=== PATIENT | male | born 1980 | race African-American/Black ===

== ENCOUNTER 2020-07-14 21:10 | Emergency (ER) | payer OTHER, SELFPAY ==
--- NOTE | ~2020-07-14 | XR_ITS ---
XR chest 1V portable 07/14/2020 23:04 Indication: Left lower and middle left back pain. Diarrhea. Procedure: AP portable chest Comparison: No prior studies for comparison. Findings: Ill-defined bilateral patchy airspace disease with peribronchial thickening, suspicious for pneumonia. Cardiomegaly. No significant effusion or pneumothorax. No acute osseous abnormality. Impression: 1: Bilateral patchy airspace disease, most likely pneumonia. Edema less favored. 2: Cardiomegaly. Reviewed, dictated and finalized at location A. Impression: 1: Bilateral patchy airspace disease, most likely pneumonia. Edema less favored . 2: Cardiomegaly.
[2020-07-14 21:17] VITALS: BP 132/63; PULSE 83; RESP 16; TEMP 36.4; O2SAT 96
[2020-07-14 22:44] LABS: Basophils Percent Auto 0.2 % (0.2-1.2); Hematocrit 44.4 % (42.0-52.0); Hemoglobin 15.1 g/dL (14.0-18.0); Immature Granulocyte Absolute 0.01 K/mm3 (0.00-0.031); Immature Granulocyte Percent A 0.2 % (0-0.5); Lymphocytes Absolute Auto 0.86 K/mm3 (0.9-3.2); Lymphocytes Percent Auto 19.1 % (18.3-44.2); Mean Corpuscular Hemoglobin 30.1 pg (26-34); Mean Corpuscular Volume 88.4 fl (80-100); Mean Platelet Volume 10.7 fl (7.4-10.4); Monocytes Absolute Auto 0.2 K/mm3 (0.1-0.6); Monocytes Percent Auto 5.1 % (2.6-8.5); Neutrophils Absolute Auto 3.4 K/mm3 (1.3-6.7); Neutrophils Percent Auto 75.4 % (45.5-73.1); Platelet Count Result 153 k/mm3 (150-375); Red Blood Count 5.02 M/mm3 (4.6-6.20); Red Cell Distribution Width 13.2 % (11.5-14.5); White Blood Count 4.5 K/mm3 (4.5-10.0)
[2020-07-14 22:48] LABS: Add Urine Microscopic? YES; Appearance Urine Cloudy (Clear); Bacteria Urine Trace /hpf; Bilirubin Urine Negative (Negative); Blood Urine Negative (Negative); Color Urine Yellow (Yellow); Glucose Urine UA Negative (Negative); Ketones Urine Negative (Negative); Leukocyte Esterase Ur Negative LEU/UL (Negative); Mucus Urine Rare /lpf; Nitrate Urine Negative (Negative); Protein Urine 2+ mg/dL (Negative); RBC Urine 0-2 /hpf (0-2); Specific Grav Ur 1.021 (1.001-1.035); Squamous Epithelial Cell Urine Rare /hpf (Few); Urobilinogen Urine Negative mg/dL (<2.0); WBC Urine 0-3 /hpf
[2020-07-14 22:54] LABS: Alanine Aminotransferase 147 U/L (4-50); Albumin Level 4.3 g/dL (3.5-5.1); Alkaline Phosphatase 66 U/L (38-126); Anion Gap 6 mmol/L (8-16); Aspartate Amino Transferase 118 U/L (17-59); Bilirubin,Total 0.7 mg/dL (0.2-1.3); Blood Urea Nitrogen 14 mg/dL (9-20); Calcium 7.8 mg/dL (8.4-10.2); Carbon Dioxide 30 mmol/L (22-30); Chloride 94 mmol/L (98-107); Estimated CRCL calculation 105 ml/min; Estimated Glomerular Filt Rate > 60; Glucose 142 mg/dL (75-110); Lipase 80 U/L (23-300); Potassium 4.3 mmol/L (3.4-5.0); Sodium 130 mmol/L (137-145)
[2020-07-14] MEDS: SODIUM CHLORIDE 0.9% IV 1,000 ML 999 ML IV CONT (23:09)
[2020-07-14] MEDS: FAMOTIDINE 20 MG/2 ML VIAL IV PUSH (23:10)
[2020-07-14] MEDS: KETOROLAC 30 MG/ML VIAL (*BKC) IV PUSH (23:11)
[2020-07-14 23:15] VITALS: BP 138/77; PULSE 72; RESP 20; O2SAT 96
--- NOTE | 2020-07-14 23:16 | ED.GENADULT ---
HPI - General Adult General Chief complaint: Back Pain/Injury <Matthew Martinez PA-C - Last Filed: 07/14/20 23:36> Stated complaint: left flank pain <Matthew Martinez PA-C - Last Filed: 07/14/20 23:36> Time Seen by Provider: 07/14/20 22:24 <Matthew Martinez PA-C - Last Filed: 07/14/20 23:36> Source: patient <Matthew Martinez PA-C - Last Filed: 07/14/20 23:36> Mode of arrival: ambulatory <Matthew Martinez PA-C - Last Filed: 07/14/20 23:36> Limitations: no limitations <Matthew Martinez PA-C - Last Filed: 07/14/20 23:36> History of Present Illness HPI narrative: Patient is a 40-year-old male who presents with 2 days duration of nonproductive cough subjective fever chills body aches diarrhea and left lower back pain patient denies sick contacts has not been seen for this complaint presents in no distress 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 Patient notes he does not have a primary care doctor. <Matthew Martinez PA-C - Last Filed: 07/14/20 23:36> Related Data Allergies/adverse reactions: Allergies Allergy/AdvReac Type Severity Reaction Status Date / Time No Known Allergies Allergy Verified 07/14/20 23:09 <Matthew Martinez PA-C - Last Filed: 07/14/20 23:36> Review of Systems Review of Systems: All systems reviewed & are unremarkable except as noted in HPI and below <Matthew Martinez PA-C - Last Filed: 07/14/20 23:36> [facility] Past Medical History Medical History: Medical History (Updated 07/14/20 @ 23:34 by Matthew Martinez PA-C) Obese <Matthew Martinez PA-C - Last Filed: 07/14/20 23:36> Social History Social History: Social History (Updated 07/14/20 @ 23:28 by Matthew Martinez PA-C) Smoking status: Never smoker <Matthew Martinez PA-C - Last Filed: 07/14/20 23:36> Exam Narrative: Exam Narrative: GENERAL: Well-appearing, obese, and in no acute distress. HEAD: Normocephalic, atraumatic. EYES: PERRLA and EOMI. ENT: Nares clear, no rhinorrhea or epistaxis. Mucous membranes moist. Oropharynx without tonsillar hypertrophy exudate or other lesions. NECK: Supple. No adenopathy or masses. No carotid bruits or JVD CHEST: Clear to auscultation. No respiratory distress. Slight crackles on auscultation HEART: Regular rate and rhythm. No murmur heard. Normal peripheral pulses. ABDOMEN: Soft, nontender, nondistended EXTREMITIES: Normal range of motion. No edema. SKIN: Warm, dry, no rash. NEURO: No focal deficits. Alert and oriented x3. Cranial nerves II through XII grossly intact PSYCH: Normal mood and affect. <Matthew Martinez PA-C - Last Filed: 07/14/20 23:36> Course Course Emergency Course: Patient's constellation of findings and symptoms point to Covid is the likely etiology patient was hydrated evaluated in the emergency department found to have pneumonia also supporting the Covid diagnosis patient was instructed on follow-up and given reasons to return will be purchasing an O2 oximeter to follow his oxygen saturations provided with primary care follow-up is aware that primary care will be necessary to get his results. ABCs and vital signs intact and stable no hypoxemia patient was monitored on oximetry. <KEN Davey Last Filed: 07/14/20 23:36> Vital Signs Vital signs: Vital Signs Temperature 97.6 F 07/14/20 21:17 Pulse Rate 83 07/14/20 21:17 Respiratory Rate 16 07/14/20 21:17 Blood Pressure 132/63 07/14/20 21:17 Pulse Oximetry 96 07/14/20 21:17 Temperature 97.6 F 07/14/20 21:17 Pulse Rate 74 07/15/20 00:10 Respiratory Rate 20 07/15/20 00:10 Blood Pressure 134/85 07/15/20 00:10 Pulse Oximetry 96 07/15/20 00:10 <Matthew Martinez PA-C - Last Filed: 07/14/20 23:36> Vital Signs Temperature 97.6 F 07/14/20 21:17 Pulse Rate 83 07/14/20 21:17 Respiratory Rate 16 07/14/20 21:17 Blood Pressure 132/63 07/14/20 21:17 Pulse Oximetry 96 04/20/21 21:17 T
[2020-07-14] MEDS: DEXAMETHASONE SOD PHOS INJ 4 MG/ML VIAL 10 MG IV PUSH (23:33)
[2020-07-15 00:10] VITALS: BP 134/85; PULSE 74; RESP 20; O2SAT 96
[2020-07-15 18:26] LABS: SARS-CoV-2 RNA PCR Positive
== END 2020-07-15 00:10 | disposition home or self-care (01) ==
PROVIDERS: Emergency Medicine Emergency Medical Services; Emergency Provider General Practice
DX: U07.1 COVID-19 (principal); J12.82 Pneumonia due to coronavirus disease 2019
CPT/HCPCS: 36415; 71045; 80053; 81001; 83690; 85025; 96361; 96374; 96375; 99284; C9803; J1100; J1885; J7030; U0003; U0005

== ENCOUNTER 2020-07-16 00:39 | Inpatient (IN) | payer OTHER, SELFPAY ==
[2020-07-16] VITALS (23 sets, daily range): BP systolic 123–160; BP diastolic 68–98; PULSE 74–97; RESP 18–34; TEMP 36.2–39.4; O2SAT 85–98; BMI 46.3
--- NOTE | ~2020-07-16 | XR_ITS ---
EXAMINATION: XR chest 1V portable DATE: 07/19/2020 05:57 INDICATION: Acute hypoxic respiratory failure. COVID-19 pneumonia. TECHNIQUE: A single frontal view of the chest was obtained. COMPARISON: Chest single view 07/18/2020 FINDINGS: Again seen is mild elevation of right hemidiaphragm. There are airspace opacities involving all lung zones bilaterally. No pleural effusion or pneumothorax. The heart size is normal. The endot messi tube tip is 5.1 cm above the jolly. The nasogastric tube tip is beyond the inferior margin o f the radiograph, but at least to the stomach. A right internal jugular central venous catheter is se en with tip in the superior vena cava. IMPRESSION: 1. Stable diffuse lung disease, consistent with COVID-19 pneumonia. Reviewed, dictated and finalized at location A.
--- NOTE | ~2020-07-16 | CT_ITS ---
EXAMINATION: CTA chest PE protocol DATE: 07/16/2020 02:04 INDICATION: Chest pain. Hypoxia. TECHNIQUE: Computed tomography angiography (CTA) of the chest was performed with 100 mL Omnipaque-350 intravenous contrast timed to evaluate the pulmonary arteries. Coronal maximum intensity projection 3D-reconstructions were created by the technologist. Automated exposure control and iterative reconst ruction technique were employed. Exam dose: 1081.69 mGy-cm total exam DLP. COMPARISON: 07/16/2020 portable AP chest FINDINGS: There is moderate opacification of the pulmonary arteries and no apparent pulmonary embolis m. Extensive bilateral patchy groundglass pulmonary infiltrates. No pleural effusion. No pneumothorax. C ardiomegaly. No thoracic aortic aneurysm or dissection. Hepatic steatosis. Included skeletal structures are unremarkable. IMPRESSION: Extensive bilateral patchy groundglass infiltrates No evidence of pulmonary embolism Hepatic steatosis Reviewed, dictated and finalized at Location A. Reviewed, dictated and finalized at location A.
--- NOTE | ~2020-07-16 | XR_ITS ---
EXAMINATION: XR chest 1V portable DATE: 07/16/2020 01:25 INDICATION: Hypoxia. TECHNIQUE: A single frontal view of the chest was obtained. COMPARISON: Chest CT 07/16/2020, chest single view 07/14/2020 FINDINGS: There are patchy airspace opacities throughout the lungs bilaterally. No pleural effusion o r pneumothorax. Cardiomegaly is noted. IMPRESSION: 1. Worsened diffuse lung disease, consistent with COVID-19 pneumonia. 2. Cardiomegaly. Reviewed, dictated and finalized at location B.
--- NOTE | ~2020-07-16 | XR_ITS ---
XR chest port-a-cath/central 07/17/2020 21:02 Indication: Central line insertion Procedure: AP portable chest Comparison: Comparison to multiple prior studies sequentially, with oldest reviewed study dated 07/14/2020. Findings: Stable endotracheal tube. Right IJ central line tip in the SVC. Progression of diffuse bila teral airspace disease. There is a right pleural effusion. No pneumothorax. Impression: 1: Progression of diffuse bilateral airspace disease which may represent edema and/or pneumonia. 2: Right IJ central line tip in the SVC. Reviewed, dictated and finalized at location A. Impression: 1: Progression of diffuse bilateral airspace disease which may represent edema and/or pneumonia. 2: Right IJ central line tip in the SVC.
--- NOTE | ~2020-07-16 | XR_ITS ---
XR abdomen NG/feed tube insert INDICATION: Evaluate ET tube position. TECHNIQUE: Limited KUB perform for evaluating NG tube . COMPARISON: No prior studies for comparison. FINDINGS: NG tube tip in the proximal duodenum. Visualized bowel gas pattern is unremarkable. IMPRESSION: 1: NG tube tip in the proximal duodenum. Reviewed, dictated and finalized at location A.
--- NOTE | ~2020-07-16 | XR_ITS ---
XR chest ET placement 07/17/2020 20:30 Indication: Respiratory distress. Procedure: AP portable chest Comparison: Comparison to multiple prior studies sequentially, with oldest reviewed study dated 07/14. Findings: No significant change to diffuse bilateral airspace disease which may represent pneumonia o r edema. Endotracheal tube tip 5 cm above the jolly. NG tube passes into the stomach, tip not evalua ran. No pneumothorax. Impression: 1: Stable diffuse bilateral airspace consolidation which may represent edema and/or pneumonia. Reviewed, dictated and finalized at location A. Impression: 1: Stable diffuse bilateral airspace consolidation which may represent edema an d/or pneumonia.
--- NOTE | ~2020-07-16 | XR_ITS ---
EXAMINATION: XR chest 1V portable DATE: 07/20/2020 06:05 INDICATION: Acute hypoxic respiratory failure. COVID-19 pneumonia. TECHNIQUE: A single frontal view of the chest was obtained. COMPARISON: Chest single view 07/19/2020 FINDINGS: There are airspace opacities in all lung zones bilaterally, worst in left midlung zone. No pleural effusion or pneumothorax. The heart size is normal. The endotracheal tube tip is 5.4 cm above the jolly. A right internal jugular central venous catheter is seen with tip in the superior vena c alecia. The nasogastric tube tip is beyond the inferior margin of the radiograph, but at least to the st omach. IMPRESSION: 1. Diffuse lung disease with slight improvement on the right, consistent with COVID-19 pneumonia. Reviewed, dictated and finalized at location A. IMPRESSION: 1. Diffuse lung disease with slight improvement on the right, consistent with C OVID-19 pneumonia.
--- NOTE | ~2020-07-16 | XR_ITS ---
EXAMINATION: XR chest 1V portable DATE: 07/18/2020 08:02 INDICATION: Acute hypoxia respiratory failure. COVID-19 pneumonia. TECHNIQUE: A single frontal view of the chest was obtained. COMPARISON: Chest CT 07/16/2020, chest single view 07/17/2020 FINDINGS: There is mild elevation of right hemidiaphragm. There are airspace opacities in all lung [facility] bilaterally. No pleural effusion or pneumothorax. The heart size is normal. The endotracheal tube tip is 3.8 cm above the jolly. The nasogastric tube tip is beyond the inferior margin of the radiog raph, but at least to the stomach. A right internal jugular central venous catheter is seen with tip in the superior vena cava. IMPRESSION: 1. Stable diffuse lung disease, consistent with COVID-19 pneumonia. Reviewed, dictated and finalized at location A.
--- NOTE | 2020-07-16 00:46 | ECG_ITS ---
Measurements Intervals Bromide Rate: 88 P: 30 UT: 130 QRS: 23 QRSD: 89 T: 27 QT: 323 QTc: 391 Interpretive Statements SINUS RHYTHM NONSPECIFIC T-WAVE ABNORMALITY- DIFFUSE LEADS BASELINE ARTIFACT- I, II, III, AVR, AVF, V4-V6 BORDERLINE ECG Electronically Signed On 07-22-2020 13:44:06 CDT by Kevin Joseph D.O.
--- NOTE | 2020-07-16 01:03 | ED.SOB ---
HPI - SOB/Dyspnea General Chief Complaint: Shortness of Breath/Dyspnea Stated Complaint: sob Time Seen by Provider: 07/16/20 00:43 Source: patient Mode of arrival: EMS Limitations: no limitations History of Present Illness HPI Narrative: This is a 40 year old obese male who presents for shortness of breath. He was diagnosed with pneumonia yesterday that was presumed to be due to COVID. He was discharged with antibiotics, albuterol inhaler. He states his symptoms started on Monday (5 days ago) with cough, left flank pain with coughing and sob. [facility] has [facility] to become more sob. He was found to be 85 % on room air on arrival to ER. He denies chest pain currently. He has been having fever, chills, sob, cough and diarrhea. He took Tylenol 6 hours ago for his fever. He denies history of cardiac disease or DVT, PE. MD elicited complaint: shortness of breath Related Data Home Medications Medication Instructions Recorded Confirmed azithromycin [Zithromax Z-Velasquez] 250 mg PO DAILY 07/16/20 07/16/20 loratadine [Claritin] 10 mg PO DAILY 07/16/20 07/16/20 Allergies Allergy/AdvReac Type Severity Reaction Status Date / Time No Known Allergies Allergy Verified 07/14/20 23:09 Review of Systems Review of Systems: All systems reviewed & are unremarkable except as noted in HPI and below Constitutional: Constitutional: Reports chills and Reports fever(s) Cardiovascular: Cardiovascular: Reports chest pain Respiratory: Respiratory: Reports cough and Reports dyspnea Gastrointestinal: Gastrointestinal: Reports diarrhea Musculoskeletal: Musculoskeletal: Reports back pain [facility] Past Medical History Medical History (Updated 07/16/20 @ 02:42 by Amirah Quintana MD) Obese Social History Social History (Updated 07/14/20 @ 23:28 by Matthew Martinez PA-C) Smoking status: Never smoker Alcohol intake: current Drinks per week: 1 Substance use: never Substance use type: does not use Spiritual care concerns: No Exam Const: General: alert Orientation/consciousness: patient oriented x3 Other: moderate distress Eyes: EOM: EOMs intact bilaterally Resp: Effort & Inspection: no retractions, tachypneic and no use of accessory muscles Auscultation: crackles and diminished lung sounds Other: He is able to speak in complete sentences Cardio: Rate: regular rate Rhythm: regular rhythm Heart sounds: no murmurs GI: GI Palp: Yes Soft to palpation, No Tenderness to palpation present (GI) and No Guarding due to palpation present (GI) Auscultation: normal bowel sounds Skin: General skin exam: normal color Rashes: no rashes Neuro: General: patient oriented x3, moves all extremities and CN's II-XI intact bilaterally Psych: Mental Status: mental status grossly normal Affect: normal affect Course Consultations Consultation #1: I Discussed case with Dr. Johnson. He accepts patient to IMU. Patient is 96% on 4 L NC. He is tachypneic . he does not need intubation at this point. He will be monitored in IMU Date: 07/16/20 Time: 02:06 Vital Signs Vital signs: Vital Signs Temperature 100.5 F H 07/16/20 00:43 Pulse Rate 93 07/16/20 00:43 Respiratory Rate 28 H 07/16/20 00:43 Blood Pressure 160/74 H 07/16/20 00:43 Pulse Oximetry 85 L 07/16/20 00:43 Temperature 98.7 F 07/16/20 08:00 Pulse Rate 97 07/16/20 08:08 Respiratory Rate 22 H 07/16/20 08:08 Blood Pressure 140/71 07/16/20 08:00 Pulse Oximetry 97 07/16/20 08:04 MDM - SOB/Dyspnea Medical Records Attestation: I reviewed the patient's medical records. Lab Data Attestation: I reviewed the patient's lab results. Result diagrams: 07/16/20 00:59 07/16/20 00:59 Labs: Lab Results 07/16/20 07/16/20 07/16/20 Range/Units 00:59 00:59 00:59 WBC 5.4 (4.5-10.0) K/mm3 RBC 4.84 (4.6-6.20) M/mm3 Hgb 14.8 (14.0-18.0) g/dL Hct 42.9 (42.0-52.0)
[2020-07-16 01:08] LABS: Basophils Percent Auto 0.2 % (0.2-1.2); Hematocrit 42.9 % (42.0-52.0); Hemoglobin 14.8 g/dL (14.0-18.0); Immature Granulocyte Absolute 0.03 K/mm3 (0.00-0.031); Immature Granulocyte Percent A 0.6 % (0-0.5); Lymphocytes Absolute Auto 0.48 K/mm3 (0.9-3.2); Lymphocytes Percent Auto 8.8 % (18.3-44.2); Mean Corpuscular HGB Conc 34.5 g/dl (32-36); Mean Corpuscular Hemoglobin 30.6 pg (26-34); Mean Corpuscular Volume 88.6 fl (80-100); Mean Platelet Volume 11.6 fl (7.4-10.4); Monocytes Absolute Auto 0.2 K/mm3 (0.1-0.6); Monocytes Percent Auto 3.3 % (2.6-8.5); Neutrophils Absolute Auto 4.7 K/mm3 (1.3-6.7); Neutrophils Percent Auto 87.1 % (45.5-73.1); Platelet Count Result 171 k/mm3 (150-375); Red Blood Count 4.84 M/mm3 (4.6-6.20); Red Cell Distribution Width 13.1 % (11.5-14.5); White Blood Count 5.4 K/mm3 (4.5-10.0)
[2020-07-16 01:16] LABS: Alveolar/Arterial O2 Gradient 147.3 mmHg; Carboxyhemoglobin 0.9 % THb (0-2.0); Device NASAL CANNULA; Fractional Inspired Oxygen 36 %; HCO3 ABG 24.7 mEq/l (22.0-26.0); Methemoglobin ABG 0.2 %THb (0-1.5); Modified Allen's Test Pass; Oxygen Content ABG 19.4 %vol (16.0-22.0); Oxygen Saturation ABG 94.1 % (95.0-100.0); Oxyhemoglobin 92.6 % THb (90.0-100.0); PCO2 ABG 36.7 mmHg (35.0-45.0); PO2 ABG 66.8 mmHg (80.0-100.0); PO2 FiO2 Ratio Arterial Blood 1.86 %; Reduced Hemoglobin 6.3 %THb (0-5.0); Site Drawn LEFT RADIAL; Total Hemoglobin 14.9 g/dL (12.0-18.0); pH ABG 7.446 (7.350-7.450)
[2020-07-16] MEDS: ALBUTEROL SULFATE (*SP) AEROSOL 1 PUFF 8 PUFF INHALATION (01:18)
[2020-07-16 01:23] LABS: Alanine Aminotransferase 104 U/L (4-50); Albumin Level 4.2 g/dL (3.5-5.1); Alkaline Phosphatase 63 U/L (38-126); Anion Gap 6 mmol/L (8-16); Aspartate Amino Transferase 88 U/L (17-59); Bilirubin,Total 0.7 mg/dL (0.2-1.3); Blood Urea Nitrogen 16 mg/dL (9-20); CRP 2.8 mg/dL (<1.0); Calcium 7.8 mg/dL (8.4-10.2); Carbon Dioxide 30 mmol/L (22-30); Chloride 93 mmol/L (98-107); Estimated CRCL calculation 117 ml/min; Estimated Glomerular Filt Rate > 60; Glucose 162 mg/dL (75-110); Potassium 4.2 mmol/L (3.4-5.0); Sodium 129 mmol/L (137-145)
[2020-07-16 01:23] LABS: Lactic Acid Reflex 1.4 mmol/L (0.7-2.1)
[2020-07-16 01:28] LABS: INR 0.9; Prothrombin Time 12.7 Seconds (11.1-14.7)
[2020-07-16 01:29] LABS: Partial Thromboplastin Time 29.4 SECONDS (22.3-36.8)
[2020-07-16 01:31] LABS: D Dimer 1.28 ug/mL (<0.48)
[2020-07-16] MEDS: DEXAMETHASONE SOD PHOS INJ 4 MG/ML VIAL 10 MG IV PUSH (01:31)
[2020-07-16] MEDS: ACETAMINOPHEN 500 MG TABLET 1000 MG PO (01:46)
[2020-07-16] MEDS: REMDESIVIR 200 MG/NS 250 ML 200 MG/250 ML BAG 250 MG IVPB (02:15)
[2020-07-16 04:03] LABS: Add Urine Microscopic? YES; Appearance Urine Clear (Clear); Bilirubin Urine Negative (Negative); Blood Urine Negative (Negative); Color Urine Yellow (Yellow); Glucose Urine UA Negative (Negative); Ketones Urine Negative (Negative); Leukocyte Esterase Ur Negative LEU/UL (Negative); Mucus Urine Rare /lpf; Nitrate Urine Negative (Negative); Protein Urine 1+ mg/dL (Negative); RBC Urine 0-2 /hpf (0-2); WBC Urine 0-3 /hpf
--- NOTE | 2020-07-16 04:05 | ADMGEN ---
This patient, Bennie Castillo, was admitted to IMU Room 211-01. Patient/family oriented to hospital policies and general routines including ID bracelet, bed and alarms, visiting hours, pain management, procedures, bathroom and other care routines, personal items, smoking policy, room service/diet, and visiting hours. Information on how to activate the Rapid Response Team has been discussed. Patient/Family are encouraged to report perceived risks to care and to ask questions if they do not understand what they are told or what they should do.
[2020-07-16 04:14] LABS: Specific Grav Ur 1.038 (1.001-1.035)
[2020-07-16] MEDS: ALBUTEROL SULFATE (*SP) AEROSOL 1 PUFF 6 PUFF INHALATION (08:07)
[2020-07-16] MEDS: DEXAMETHASONE 2 MG TABLET 6 MG PO (08:42)
--- NOTE | 2020-07-16 09:59 | PM.IMHP ---
H&P: HPI History of Present Illness Date/Time: 07/16/20 09:59 40-year-old male with obesity and obstructive sleep apnea presents to the emergency room on his 4rd visit this week Previous of visits last Monday for headache, last Monday for dehydration and poor p.o. intake, He was diagnosed 08/13/20 w pneumonia w + COVID. He was discharged with antibiotics, albuterol inhaler from the emergency room. he has returned again 07/15/2020Monday with noted shortness of breath after calling 911 and being noted to be hypoxic 86% on room air. Associated symptoms are cough, left flank pain with coughing and sob. He denies loss of taste or smell. Denies diarrhea. 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 He has no known sick contacts. Chief Complaint: shortness of breath Review of Systems Review of Systems: All systems reviewed & are unremarkable except as noted in HPI and below PMFSH Past Medical History Medical History (Updated 07/16/20 @ 10:01 by Rosaura Landry MD) Obese MARILUZ (obstructive sleep apnea) Family History Family History (Updated 07/16/20 @ 10:02 by Rosaura Landry MD) Other Asthma Social History Social History (Updated 07/14/20 @ 23:28 by Matthew Martinez PA-C) Smoking status: Never smoker Alcohol intake: current Drinks per week: 1 Substance use: never Substance use type: does not use Spiritual care concerns: No Meds Home Medications and Allergies Home Medications Medication Instructions Recorded Confirmed Type albuterol sulfate 2 puff INHALATION QID PRN #1 g 07/14/20 07/16/20 Rx famotidine [Pepcid] 20 mg PO BID #14 tablet 07/14/20 07/16/20 Rx fluticasone furoate [Flonase 2 spray INTRANASAL DAILY #5.9 ml 07/14/20 07/16/20 Rx Sensimist] ibuprofen [IBU] 600 mg PO Q6H PRN #7 tablet 07/14/20 07/16/20 Rx azithromycin [Zithromax Z-Velasquez] 250 mg PO DAILY 07/16/20 07/16/20 History loratadine [Claritin] 10 mg PO DAILY 07/16/20 07/16/20 History Allergies Allergy/AdvReac Type Severity Reaction Status Date / Time No Known Allergies Allergy Verified 07/14/20 23:09 Vital Signs Vital Signs - 24 hr 07/16/20 00:43 07/16/20 00:47 07/16/20 00:48 Temperature 100.5 F H 103.0 F H Pulse Rate 93 89 90 Respiratory Rate 28 H 26 H Blood Pressure 160/74 H Pulse Oximetry 85 L 96 07/16/20 01:24 07/16/20 01:37 07/16/20 02:58 Temperature 99.1 F Pulse Rate 96 97 94 Respiratory Rate 34 H 26 H 30 H Blood Pressure 154/90 H 133/68 Pulse Oximetry 98 97 07/16/20 03:30 07/16/20 04:00 07/16/20 05:15 Temperature 99.7 F H Pulse Rate 88 76 74 Respiratory Rate 18 Blood Pressure 123/70 Pulse Oximetry 95 07/16/20 08:00 07/16/20 08:04 07/16/20 08:08 Temperature 98.7 F Pulse Rate 85 97 97 Respiratory Rate 22 H 22 H Blood Pressure 140/71 Pulse Oximetry 92 97 Exam Const: General: comfortable and no acute distress Other: obese HENMT: General nose exam: Normal nares present Mouth: Yes moist mucous membranes Eyes: General: appearance normal, both eyes and all related structures EOM: EOMs intact bilaterally Neck: Neck: supple and no JVD Resp: Effort & Inspection: normal respiratory effort Auscultation: crackles diffuse and diminished lung sounds Cardio: Rate: regular rate GI: Inspection: non-distended GI Palp: Yes Soft to palpation, No Firmness to palpation present (GI), No Tenderness to palpation present (GI), No Guarding due to palpation present (GI) and No Hernia present Auscultation: normal bowel sounds and bowels sounds normal Skin: General skin exam: normal color Wounds: no wounds Neuro: Cognition (Neuro): normal cognition Speech: normal speech Motor exam (neuro): Normal motor muscle tone present throughout Extrem: General: normal to inspection, normal exam except as noted, no edema and no pedal edema Right upper extremity: normal to inspection and normal capillary refill Left upper extremity: no
[2020-07-16] MEDS: CHOLECALCIFEROL 1,000 UNITS TABLET 1000 UNITS PO (12:30)
[2020-07-16] MEDS: ENOXAPARIN 40 MG/0.4 ML SYRINGE SUB-Q (12:31)
[2020-07-16] MEDS: ASCORBIC ACID 500 MG TABLET 1000 MG PO (16:04)
[2020-07-16] MEDS: ZINC SULFATE 220 MG CAPSULE PO (16:05)
[2020-07-16] MEDS: ACETAMINOPHEN 325 MG TABLET 650 MG PO (19:58)
[2020-07-16] MEDS: REMDESIVIR 100 MG/NS 250 ML 100 MG/250 ML BAG 250 MG IVPB (21:14)
[2020-07-17] VITALS (37 sets, daily range): BP systolic 126–187; BP diastolic 61–139; PULSE 72–108; RESP 18–37; TEMP 36.2–37.7; O2SAT 57–99; BMI 46.1
[2020-07-17] MEDS: MELATONIN 3 MG TABLET PO (02:02)
[2020-07-17 05:22] LABS: INR 0.9; Prothrombin Time 12.3 Seconds (11.1-14.7)
[2020-07-17 06:19] LABS: Alanine Aminotransferase 81 U/L (4-50); Estimated CRCL calculation 153 ml/min; Estimated Glomerular Filt Rate > 60
[2020-07-17] MEDS: ZINC SULFATE 220 MG CAPSULE PO ×2 (09:00→17:22)
[2020-07-17] MEDS: ASCORBIC ACID 500 MG TABLET 1000 MG PO ×2 (09:00→17:22)
[2020-07-17] MEDS: CHOLECALCIFEROL 1,000 UNITS TABLET 1000 UNITS PO (09:00)
[2020-07-17] MEDS: DEXAMETHASONE 2 MG TABLET 6 MG PO (09:00)
[2020-07-17 10:53] LABS: Base Excess ABG 0.5 mEq/l (+/-2.0); Fractional Inspired Oxygen 100 %; HCO3 ABG 26.4 mEq/l (22.0-26.0); Oxygen Content ABG 19.8 %vol (16.0-22.0); Oxygen Saturation ABG 95.2 % (95.0-100.0); Oxyhemoglobin 93.7 % THb (90.0-100.0); PCO2 ABG 47.1 mmHg (35.0-45.0); PO2 ABG 78.9 mmHg (80.0-100.0); PO2 FiO2 Ratio Arterial Blood 0.79 %; pH ABG 7.366 (7.350-7.450)
[2020-07-17 10:54] LABS: Device NON-REBREATHER MASK; Modified Allen's Test Pass; Site Drawn LEFT RADIAL
--- NOTE | 2020-07-17 11:21 | PM.CNPUL ---
Assessment and Plan Assessment and plan (1) COVID-19: Code(s): U07.1 - COVID-19 Status: Acute (2) Bilateral pneumonia: Code(s): J18.9 - Pneumonia, unspecified organism Status: Acute (3) Acute respiratory failure with hypoxemia: Code(s): J96.01 - Acute respiratory failure with hypoxia Status: Acute Assessment and Plan: The patient has deteriorated rapidly and may need to move to the intensive care unit for closer monitoring. He may also need noninvasive ventilation such as BiPAP. Recommend starting at 18 / 10 cm of water pressure with 100% FiO2 and a backup rate of 18. (4) MARILUZ (obstructive sleep apnea): Code(s): G47.33 - Obstructive sleep apnea (adult) (pediatric) Status: Acute Assessment and Plan: The patient does not know his current settings but nonetheless we will start him on BiPAP at night if his respiratory status does not deteriorate and if it does he will need BiPAP at night and during the day for his respiratory failure. (5) Pneumonia due to COVID-19 virus: Code(s): U07.1 - COVID-19; J12.82 - Pneumonia due to coronavirus disease 2019 Status: Acute Assessment and Plan: continue Dexamethsone for 10 days continue Remdesivir for 10 days No convincing evidence that convalescent plasma improves outcomes DVT prophylaxis History of Present Illness History of Present Illness Consult date: 07/17/20 Chief complaint: COVID pneumonia,acute respiratory failure w/ hypox Narrative: This is a very pleasant 40-year-old obese male with a history of MARILUZ who presents with COVID-19 pneumonia and acute hypoxemic respiratory failure. He regionally presented to the emergency department on 07/14/2020 with viral symptoms including cough fever chills flank pain and some diarrhea. He was not hypoxic at the time and O2 saturations were 96% in the emergency department. He was discharged from the emergency department with antibiotics and other supportive medications. He returned approximately a day later with worsening dyspnea and cough. And was found to be hypoxic. I was consulted this morning as there has been a profound increase in oxygen demands from 6 L up to 15 L plus with high-flow oxygen and non-rebreather face mask. The patient is in prone positioning and he is awake and slightly sleepy but able to answer questions appropriately. He says he has a mild productive cough. He does feel more short of breath today than yesterday. He denies smoking tobacco. He has no other medical conditions other than obstructive sleep apnea. Review of Systems Review of Systems: All systems reviewed & are unremarkable except as noted in HPI and below PMFSH Past Medical History Medical History (Updated 07/17/20 @ 11:26 by Enedelia Solis MD) Obese MARILUZ (obstructive sleep apnea) Family History Family History (Updated 07/16/20 @ 10:02 by Rosaura Landry MD) Other Asthma Social History Social History (Updated 07/14/20 @ 23:28 by Matthew Martinez PA-C) Smoking status: Never smoker Alcohol intake: current Drinks per week: 1 Substance use: never Substance use type: does not use Spiritual care concerns: No Meds Home Medications and Allergies Home Medications Medication Instructions Recorded Confirmed Type albuterol sulfate 2 puff INHALATION QID PRN #1 g 07/14/20 07/16/20 Rx famotidine [Pepcid] 20 mg PO BID #14 tablet 07/14/20 07/16/20 Rx fluticasone furoate [Flonase 2 spray INTRANASAL DAILY #5.9 ml 07/14/20 07/16/20 Rx Sensimist] ibuprofen [IBU] 600 mg PO Q6H PRN #7 tablet 07/14/20 07/16/20 Rx azithromycin [Zithromax Z-Velasquez] 250 mg PO DAILY 07/16/20 07/16/20 History loratadine [Claritin] 10 mg PO DAILY 07/16/20 07/16/20 History Allergies Allergy/AdvReac Type Severity Reaction Status Date / Time No Known Allergies Allergy Verified 07/14/20 23:09 Vital Signs Vital Signs - 24 hr 07/16/20 11:56
--- NOTE | 2020-07-17 11:27 | PM.IMPN ---
Progress Note: A&P Assessment and Plan (1) Acute respiratory failure with hypoxemia: Code(s): J96.01 - Acute respiratory failure with hypoxia Status: Acute (2) COVID-19: Code(s): U07.1 - COVID-19 Status: Acute (3) Bilateral pneumonia: Code(s): J18.9 - Pneumonia, unspecified organism Status: Acute (4) MARILUZ (obstructive sleep apnea): Code(s): G47.33 - Obstructive sleep apnea (adult) (pediatric) Status: Inactive Additional Plan COVID PNA with acute hypoxemic respiratory failure Continue supplemental oxygen; currently receiving 2 L 95% oxygen saturation on monitor Remdesivir plasma dexamethasone albuterol inhaler Vit C/D Zn++ encouraged to self prone VTEP LMWH 07/17/20 pt w acute worsening of resp status cont tx for COVID defer change in medical regimen to critical care transfer to ICU advance O2 to high flow w NRB c/s Dr Riojas cont supportive care Time Spent With Patient Time with patient: 25 - 35 minutes Subjective Date/time seen: 07/17/20 11:27 acute worsening of resp status transfer to ICU initiated after plan of care reviewed w Dr Vega Patient seen in ICU in prone position on Highflow 60L 80 % with non-rebreather mask. He is notably in distress w increased work of breathing. case reviewed w CONTINUOUS IMPROVEMENT INTERN and public health microbiologist. Exam Narrative: Exam Narrative: GEN: NAD, AAOx3, cooperative obese HEENT: NCAT, MMM, EOMI Neck: no JVD Lungs: symmetric rise, no use of accessory muscles, increased resp rate Abd: NT, ND, obses Ext: moves all, no cyanosis, no clubbing, no edema Objective Data Vital Signs Vital Signs: Vital Signs - 24 hr 07/16/20 11:56 07/16/20 12:00 07/16/20 14:00 Temperature 98.4 F Pulse Rate 88 84 85 Respiratory Rate 30 H Blood Pressure 148/77 H Pulse Oximetry 94 94 07/16/20 16:00 07/16/20 18:00 07/16/20 19:32 Temperature 97.2 F L 99.2 F Pulse Rate 94 89 94 Respiratory Rate 24 H 20 Blood Pressure 150/82 H 154/98 H Pulse Oximetry 92 90 07/16/20 20:00 07/16/20 20:48 07/16/20 22:00 Temperature Pulse Rate 94 81 80 Respiratory Rate 20 Blood Pressure Pulse Oximetry 90 91 07/16/20 23:39 07/17/20 00:00 07/17/20 01:58 Temperature 97.9 F Pulse Rate 86 86 82 Respiratory Rate 20 20 Blood Pressure 149/91 H Pulse Oximetry 90 90 07/17/20 03:30 07/17/20 03:50 07/17/20 04:00 Temperature 98.4 F Pulse Rate 82 82 83 Respiratory Rate 22 H 22 H Blood Pressure 126/61 Pulse Oximetry 91 91 07/17/20 05:37 07/17/20 08:00 07/17/20 08:41 Temperature 98.9 F Pulse Rate 87 86 Respiratory Rate 36 H Blood Pressure 143/81 H Pulse Oximetry 88 L 85 L 07/17/20 10:00 Temperature Pulse Rate 84 Respiratory Rate Blood Pressure Pulse Oximetry Intake/Output Intake/Output: Intake & Output 07/14/20 07/15/20 07/16/20 07/17/20 23:59 23:59 23:59 23:59 Intake Total 3690 1600 Output Total 2850 Balance 840 1600 Meds/Results Medications: Active Medications Generic Name Dose Route Start Last Admin Trade Name Freq PRN Reason Stop Dose Admin Acetaminophen 650 mg 07/16/20 10:25 07/16/20 19:58 Acetaminophen 325 Mg Tablet PO 650 mg Q6H PRN Administration Headache or pain Albuterol 2.5 mg 07/17/20 11:14 Albuterol Sulfate Neb 2.5 Mg/0.5 Ml Inh INHALATION Q6HRT PRN Shortness Of Breath Ascorbic Acid 1,000 mg 07/16/20 17:00 07/17/20 09:00 Ascorbic Acid 500 Mg Tablet PO 1,000 mg BID [place] Administration Budesonide 2 mg 07/17/20 11:15 Budesonide Respule Neb 0.5 Mg/2 Ml Amp INHALATION Q12HRT [facility] Dexamethasone 6 mg 07/16/20 08:00 07/17/20 09:00 Dexamethasone 2 Mg Tablet PO 07/25/20 08:01 6 mg DAILY@0800 [facility] Administration Enoxaparin Sodium 40 mg 07/16/20 11:00 07/16/20 12:31 Enoxaparin 40 Mg/0.4 Ml Syringe SUB-Q 40 mg 1100 [facility] Administration Remdesivir 100 mg in 250 mls @ 250 mls/hr 07/16/20 22:00 0
--- NOTE | 2020-07-17 11:32 | WPDCNINT ---
Assessment and Plan Assessment and plan (1) Acute respiratory failure with hypoxemia: Code(s): J96.01 - Acute respiratory failure with hypoxia Status: Acute Assessment and Plan: Acute hypoxic respiratory failure likely related to COVID-19 pneumonia -chest x-ray and CTA reviewed -ABGs with mild hypercapnia and hypoxia reflecting that patient may be tiring out -patient has been having increasing oxygen requirements since admission on 07/16/2020. -will transfer him to ICU for close monitoring. -will place patient on Airvo evaluate. As well will leave him on Airvo during the day and BiPAP at night -I did discuss with patient regarding intubation if his condition worsens to which she agrees -continue bronchodilators -continue Pulmicort (2) Pneumonia due to COVID-19 virus: Code(s): U07.1 - COVID-19; J12.82 - Pneumonia due to coronavirus disease 2019 Status: Acute Assessment and Plan: COVID-19 pneumonia, SARS-CoV-2 PCR positive on 07/14/2020. -continue Remdesivir and dexamethasone -continue vitamin-D, vitamin-C, zinc -will obtain and trend inflammatory markers inflammatory markers -continue droplet, contact, airborne isolation/precautions -appreciate pulmonology evaluation and recommendations (3) MARILUZ (obstructive sleep apnea): Code(s): G47.33 - Obstructive sleep apnea (adult) (pediatric) Status: Acute Assessment and Plan: Patient has a history of MARILUZ and is on BiPAP at home, does not know his setting -will place patient on BiPAP at night. Settings per electrode cleaning machine operator (4) DVT prophylaxis: Code(s): Z29.9 - Encounter for prophylactic measures, unspecified Status: Acute Assessment and Plan: Lovenox 40 mg SubQ q12h Additional Plan Discussed with patient updated with his condition and plan of care. I also discussed with his Teresa, and updated with his condition and plan of care. I answered all questions Code status: Full code Critical care time spent: 45 minutes This dictation may have been done utilizing a voice recognition system. Attempts have been made to correct errors. However, there may be uncorrected grammatical, spelling, and recognition errors present. Due to a high probability of clinically significant, life threatening deterioration, the patient required my highest level of preparedness to intervene emergently and I personally spent this critical care time directly and personally managing the patient. This critical care time included obtaining a history; examining the patient; pulse oximetry; ordering and review of studies; arranging urgent treatment with development of a management plan; evaluation of patient's response to treatment; frequent reassessment; and discussions with other providers. It was exclusive of separately billable procedures and treating other patients and teaching time. Please see Assessment and Plan section and the rest of the note for further information on patient assessment and treatment Bricklayer Apprentice Consult Note Consult date: 07/17/20 Time Seen: 11:21 Reason for consult: Acute respiratory failure with hypoxia, COVID-19 pneumonia HPI: Bennie Castillo is a 40 year old male history of obesity obstructive you presented the ED 07/15/2019 complaining of shortness of breath,, body aches, diarrhea he was sent with Zithromax, bronchodilators to return again to the ED on 07/16/2020 with worsening shortness, cough insulin to be hypoxic with O2 sats in the mid 80s on room air. He was initially placed on 6 L oxygen via nasal cannula and overnight requiring 15 L nasal cannula high-flow oxygen along with non-rebreather face mask. Patient was in prone position is with adequate O2 sats. He has been tachypneic with mild productive cough and shortness of breath but denies any chest pain, abdominal pain, nausea vomiting at this time. Denies any tobacco use, illicit drug use and occasionally drinks alcohol. Chest x-ray on admission showed worsening dif
[2020-07-17] MEDS: ENOXAPARIN 40 MG/0.4 ML SYRINGE SUB-Q ×2 (12:01→21:20)
[2020-07-17 12:19] LABS: Basophils Percent Auto 0.2 % (0.2-1.2); Hematocrit 41.4 % (42.0-52.0); Hemoglobin 14.1 g/dL (14.0-18.0); Immature Granulocyte Absolute 0.05 K/mm3 (0.00-0.031); Immature Granulocyte Percent A 0.6 % (0-0.5); Lymphocytes Absolute Auto 0.34 K/mm3 (0.9-3.2); Mean Corpuscular HGB Conc 34.1 g/dl (32-36); Mean Corpuscular Hemoglobin 30.1 pg (26-34); Mean Corpuscular Volume 88.3 fl (80-100); Mean Platelet Volume 10.9 fl (7.4-10.4); Monocytes Absolute Auto 0.3 K/mm3 (0.1-0.6); Neutrophils Absolute Auto 7.9 K/mm3 (1.3-6.7); Neutrophils Percent Auto 92.2 % (45.5-73.1); Platelet Count Result 186 k/mm3 (150-375); Red Blood Count 4.69 M/mm3 (4.6-6.20); Red Cell Distribution Width 13.1 % (11.5-14.5); White Blood Count 8.6 K/mm3 (4.5-10.0)
--- NOTE | 2020-07-17 12:25 | PC.NURSE ---
This patient, Bennie Castillo, was transferred to ICU 1 on 07/17/20 at 1225. Personal belongings sent with patient. Report given to LENNOX Fontenot. Appropriate documentation sent with patient.
[2020-07-17 12:33] LABS: D Dimer 1.13 ug/mL (<0.48)
[2020-07-17 12:35] LABS: Alanine Aminotransferase 85 U/L (4-50); Albumin Level 4.2 g/dL (3.5-5.1); Alkaline Phosphatase 72 U/L (38-126); Anion Gap 5 mmol/L (8-16); Aspartate Amino Transferase 85 U/L (17-59); Bilirubin,Total 0.7 mg/dL (0.2-1.3); Blood Urea Nitrogen 18 mg/dL (9-20); Calcium 7.7 mg/dL (8.4-10.2); Carbon Dioxide 31 mmol/L (22-30); Chloride 91 mmol/L (98-107); Estimated CRCL calculation 173 ml/min; Estimated Glomerular Filt Rate > 60; Glucose 170 mg/dL (75-110); Potassium 4.8 mmol/L (3.4-5.0); Sodium 127 mmol/L (137-145)
[2020-07-17 12:38] LABS: CRP 6.5 mg/dL (<1.0)
[2020-07-17] MEDS: guaiFENesin/DEXTROMETHORPHAN 10 ML UDC PO ×2 (12:46→17:22)
[2020-07-17] MEDS: BENZONATATE 100 MG CAPSULE 200 MG PO ×2 (12:46→17:22)
[2020-07-17] MEDS: ACETAMINOPHEN 325 MG TABLET 650 MG PO (12:46)
--- NOTE | 2020-07-17 12:59 | PC.NURSE ---
This patient, Bennie Castillo, was received from [imu ] on 07/17/20 at 1230. Patient/family oriented to unit policies and routines
[2020-07-17] MEDS: FENTANYL 2,500MCG/NS250ML(*CRX 2,500 MCG/250 ML BAG IV CONT (20:30)
[2020-07-17] MEDS: MIDAZOLAM 100MG/NS 100ML(*CRX) 100 MG/100 ML BAG 6 MG IV CONT (20:30)
[2020-07-17] MEDS: PROPOFOL IV EMULSION 100 ML 8.51 MG IV CONT (20:40)
--- NOTE | 2020-07-17 20:59 | WPDPROCEDUR ---
Procedures Intubation Intubation Date: 07/17/20 Intubation Time: 08:00 A pre-procedural Time-Out was completed immediately before starting the procedure and confirmed: Patient Identification, Site, Procedure, Patient Position and the Availability of Requisite Equipment: Yes Sedative: etomidate Mg given: 20 Paralytic: succinylcholine Mg given: 150 Laryngoscope: fiber optic video scope ET tube size: 8 Tube secured depth (cm): 24 Tube secured location: lips Tube placement confirmation: visualized tube passing through cords, equal breath sounds bilaterally, no breath sounds over epigastrium and confirmation by capnometry Patient tolerated procedure: well Intubation complications: none Additional comments: Date of service was 07/17/2020 at 8 pm.
[2020-07-17] MEDS: CISATRACURIUM BESYLATE 20 MG/10 ML VIAL 21.3 MG IV PUSH (21:00)
[2020-07-17] MEDS: CISATRACURIUM BESYLATE 200 MG in DEXTROSE 5% 80 ML 12.76 ML IV CONT (21:15)
--- NOTE | 2020-07-17 21:16 | WPDPROCEDUR ---
Procedures Central Line Placement Right IJ: Central Line Date: 07/17/20 Central Line Time: 20:45 Performed Emergently - Given emergent patient condition, temporal constraints may have precluded informed consent.: Yes Time Out Performed: Yes Patient Position: supine Patient placed on monitor/pulse ox: Yes Provider Prep: mask, sterile gown, sterile gloves, Max. sterile barrier precautions, cap and hand hygiene with conventional soap/water or alcohol based hand rub Central line prep: 2% Chlorhexidine scrub Sterile US Technique with sterile gel/sterile probe covers: Yes Central line lumen inserted: triple [place]: 7 Length (cm): 18 Depth of Insertion (cm): 17 Post Procedure: sutured in place, good blood return, all ports aspirated, flushed, capped, transparent dressing, securement product and aseptic technique maintained throughout procedure Post procedure x-ray: tip of catheter in good position and no pneumothorax seen Patient tolerated procedure: well and no complications Complications: none Additional comments: Date of service of procedure was 07/17/2020 at 20:45 hrs.
[2020-07-17] MEDS: CENTRAL LINE FLUSH 10 ML IV PUSH (21:21)
[2020-07-17] MEDS: EPOPROSTENOL SODIUM 0.5 MG VIAL 1 MG INHALATION (21:27)
[2020-07-17] MEDS: REMDESIVIR 100 MG/NS 250 ML 100 MG/250 ML BAG 250 MG IVPB (21:39)
[2020-07-17 22:45] LABS: Alveolar/Arterial O2 Gradient 595.6 mmHg; Base Excess ABG 1.4 mEq/l (+/-2.0); Carboxyhemoglobin 0.3 % THb (0-2.0); Fractional Inspired Oxygen 100 %; HCO3 ABG 29.7 mEq/l (22.0-26.0); Methemoglobin ABG 0.4 %THb (0-1.5); Oxygen Content ABG 24.1 %vol (16.0-22.0); Oxygen Saturation ABG 87.7 % (95.0-100.0); Oxyhemoglobin 87.5 % THb (90.0-100.0); PCO2 ABG 58.9 mmHg (35.0-45.0); PO2 ABG 58.5 mmHg (80.0-100.0); PO2 FiO2 Ratio Arterial Blood 0.58 %; Reduced Hemoglobin 11.8 %THb (0-5.0); Total Hemoglobin 19.7 g/dL (12.0-18.0)
[2020-07-17 22:47] LABS: Device VENTILATOR; Modified Allen's Test Pass; Site Drawn LEFT RADIAL
[2020-07-17 22:48] LABS: Arterial Blood Gas PEEP 12 cmH2O; Arterial Blood Gas Tidal Volume 450 ml; Arterial Blood Gas Vent Mode CMV; Arterial Blood Gas Ventilator rate 24 /MIN
[2020-07-18] VITALS (40 sets, daily range): BP systolic 118–146; BP diastolic 65–80; PULSE 69–89; RESP 24–30; TEMP 36.8–38.1; O2SAT 90–96
--- NOTE | 2020-07-18 01:24 | PC.NURSE ---
Addendum entered by Renee Mayes RN 07/18/20 01:26: conversation took place at 07/17/202049 Original Note: Spouse Teresa updated per intubation and central line placement. Teresa concerned about being mad POA. Will enter case mg consult.
--- NOTE | 2020-07-18 01:32 | PC.NURSE ---
07/18/20 0010 Yokasta Chappell RN spoke with Teresa Marroquin in [facility], Teresa is pt's fiance, not spouse, but remains his emergency contact.
[2020-07-18] MEDS: RAPID SEQUENCE INTUBATION KIT 1 EACH (02:03)
[2020-07-18] MEDS: EPOPROSTENOL SODIUM 0.5 MG VIAL 1 MG INHALATION (03:18)
[2020-07-18 03:49] LABS: Alveolar/Arterial O2 Gradient 612.6 mmHg; Base Excess ABG 0.1 mEq/l (+/-2.0); Carboxyhemoglobin 0.4 % THb (0-2.0); Fractional Inspired Oxygen 100 %; HCO3 ABG 24.4 mEq/l (22.0-26.0); Methemoglobin ABG 0.2 %THb (0-1.5); Modified Allen's Test Pass; Oxygen Content ABG 18.3 %vol (16.0-22.0); Oxyhemoglobin 89.8 % THb (90.0-100.0); PCO2 ABG 38.9 mmHg (35.0-45.0); PO2 ABG 61.5 mmHg (80.0-100.0); PO2 FiO2 Ratio Arterial Blood 0.62 %; Reduced Hemoglobin 9.6 %THb (0-5.0); Site Drawn RIGHT RADIAL; Total Hemoglobin 14.5 g/dL (12.0-18.0); pH ABG 7.416 (7.350-7.450)
[2020-07-18 03:50] LABS: Arterial Blood Gas PEEP 12 cmH2O; Arterial Blood Gas Tidal Volume 450 ml; Arterial Blood Gas Vent Mode CMV; Arterial Blood Gas Ventilator rate 24 /MIN; Device VENTILATOR
[2020-07-18 05:18] LABS: Hematocrit 40.1 % (42.0-52.0); Hemoglobin 13.9 g/dL (14.0-18.0); Mean Corpuscular HGB Conc 34.7 g/dl (32-36); Mean Corpuscular Hemoglobin 30.4 pg (26-34); Mean Corpuscular Volume 87.7 fl (80-100); Mean Platelet Volume 11.2 fl (7.4-10.4); Platelet Count Result 203 k/mm3 (150-375); Red Blood Count 4.57 M/mm3 (4.6-6.20); Red Cell Distribution Width 13.1 % (11.5-14.5); White Blood Count 8.1 K/mm3 (4.5-10.0)
[2020-07-18 05:32] LABS: INR 0.9; Prothrombin Time 13.2 Seconds (11.1-14.7)
[2020-07-18 05:34] LABS: D Dimer 1.73 ug/mL (<0.48)
[2020-07-18 05:49] LABS: Alanine Aminotransferase 65 U/L (4-50); Albumin Level 3.5 g/dL (3.5-5.1); Alkaline Phosphatase 75 U/L (38-126); Anion Gap 4 mmol/L (8-16); Aspartate Amino Transferase 88 U/L (17-59); Bilirubin,Total 0.6 mg/dL (0.2-1.3); Blood Urea Nitrogen 17 mg/dL (9-20); Calcium 7.5 mg/dL (8.4-10.2); Carbon Dioxide 34 mmol/L (22-30); Chloride 93 mmol/L (98-107); Estimated CRCL calculation 173 ml/min; Estimated Glomerular Filt Rate > 60; Glucose 140 mg/dL (75-110); Magnesium 2.6 mg/dL (1.6-2.3); Phosphorus 3.2 mg/dL (2.5-4.5); Potassium 4.4 mmol/L (3.4-5.0); Sodium 131 mmol/L (137-145)
[2020-07-18 05:50] LABS: Lactate Dehydrogenase 2943 U/L (313-618)
[2020-07-18] MEDS: CISATRACURIUM BESYLATE 200 MG in DEXTROSE 5% 80 ML 10.64 ML IV CONT (06:17)
[2020-07-18] MEDS: PROPOFOL IV EMULSION 100 ML 12.76 MG IV CONT ×2 (06:19→12:40)
[2020-07-18] MEDS: CENTRAL LINE FLUSH 10 ML IV PUSH ×4 (06:45→21:41)
[2020-07-18] MEDS: ENOXAPARIN 40 MG/0.4 ML SYRINGE SUB-Q ×2 (08:26→21:40)
[2020-07-18] MEDS: ASCORBIC ACID 500 MG TABLET 1000 MG PO ×2 (08:27→16:35)
[2020-07-18] MEDS: DEXAMETHASONE SOD PHOS INJ 4 MG/ML VIAL 6 MG IV PUSH (08:27)
[2020-07-18] MEDS: CHOLECALCIFEROL 1,000 UNITS TABLET 1000 UNITS PO (08:27)
[2020-07-18] MEDS: ZINC SULFATE 220 MG CAPSULE PO ×2 (08:27→16:35)
[2020-07-18 09:20] LABS: Carboxyhemoglobin 0.3 % THb (0-2.0); Fractional Inspired Oxygen 100 %; HCO3 ABG 25.5 mEq/l (22.0-26.0); Methemoglobin ABG 0.3 %THb (0-1.5); Oxygen Content ABG 20.4 %vol (16.0-22.0); Oxygen Saturation ABG 94.1 % (95.0-100.0); Oxyhemoglobin 92.4 % THb (90.0-100.0); PCO2 ABG 40.2 mmHg (35.0-45.0); PO2 ABG 68.8 mmHg (80.0-100.0); PO2 FiO2 Ratio Arterial Blood 0.69 %; Total Hemoglobin 15.7 g/dL (12.0-18.0)
[2020-07-18 09:24] LABS: Device VENTILATOR; Modified Allen's Test Pass; Site Drawn RIGHT RADIAL
[2020-07-18 09:25] LABS: Arterial Blood Gas PEEP 12 cmH2O; Arterial Blood Gas Tidal Volume 450 ml; Arterial Blood Gas Vent Mode CMV; Arterial Blood Gas Ventilator rate 24 /MIN
[2020-07-18] MEDS: EPOPROSTENOL SODIUM 0.5 MG VIAL INHALATION (10:42)
--- NOTE | 2020-07-18 10:59 | WPDINTPN ---
Progress Note: A&P Assessment and Plan (1) Pneumonia due to COVID-19 virus: Code(s): U07.1 - COVID-19; J12.82 - Pneumonia due to coronavirus disease 2019 Status: Acute Assessment and Plan: Continue dexamethasone 6 mg daily for a total of 10 days continue remdesivir 100 mg daily for a total of 10 days No evidence that convalescent plasma is effective. (2) MARILUZ (obstructive sleep apnea): Code(s): G47.33 - Obstructive sleep apnea (adult) (pediatric) Status: Acute (3) Acute respiratory failure with hypoxemia: Code(s): J96.01 - Acute respiratory failure with hypoxia Status: Acute (4) ARDS (adult respiratory distress syndrome): Code(s): J80 - Acute respiratory distress syndrome Status: Acute Assessment and Plan: His PaO2/ FiO2 is 61 which carries a mortality of approximately 45% with ARDS and likely more in the setting of COVID-19 pneumonia. His prognosis is very poor decrease tidal volume to 420 ( ideal body weight is 155 lbs) increased respiratory rate to 26 Will wean off Flolan so that nebulized Pulmicort and albuterol can be given Along with 6 mL/kg of tidal volume his plateau pressures should be below 30 cm of water pressure but unfortunately his current ventilator machine does not have the capability of measuring that period Code status: Full code Critical care time spent: 32 minutes This dictation may have been done utilizing a voice recognition system. Attempts have been made to correct errors. However, there may be uncorrected grammatical, spelling, and recognition errors present. Due to a high probability of clinically significant, life threatening deterioration, the patient required my highest level of preparedness to intervene emergently and I personally spent this critical care time directly and personally managing the patient. This critical care time included obtaining a history; examining the patient; pulse oximetry; ordering and review of studies; arranging urgent treatment with development of a management plan; evaluation of patient's response to treatment; frequent reassessment; and discussions with other providers. It was exclusive of separately billable procedures and treating other patients and teaching time. Please see Assessment and Plan section and the rest of the note for further information on patient assessment and treatment Subjective Date/time seen: 07/18/20 10:59 Interval history: The patient was intubated last night for worsening hypoxemic respiratory failure. He was immediately sedated and paralyzed and currently is in prone positioning for ARDS secondary to COVID-19 pneumonia. His current vent settings include a tidal volume of 450 /24/ 100%/ peep of 12 with ABGs this morning showing a PaO2 of 61 and pH and pCO2 within normal limits. Chest x-ray this morning shows diffuse bilateral airspace and interstitial lung disease consistent with worsening COVID-19 pneumonia and ARDS. Review of Systems Review of Systems: All systems reviewed & are unremarkable except as noted in HPI and below Exam Narrative: Exam Narrative: intubated, sedated, paralyzed and in prone positioning Const: General: well developed Nutritional Appearance: obese Limitations: no limitations HENMT: Head: normocephalic and atraumatic Eyes: General: appearance normal, both eyes and all related structures Neck: Neck: trachea midline and supple Resp: Auscultation: wheezes and diminished lung sounds Cardio: Jugular venous distension: no JVD Rate: regular rate Rhythm: regular rhythm Heart sounds: S1 normal heart sound present and S2 normal heart sound present Skin: General skin exam: no rashes or lesions noted Neuro: General: oriented to person, oriented to place, oriented to time and patient oriented x3 Cognition (Neuro): normal cognition Speech: normal speech Extrem: General: no clubbing, cyanosis or edema Psych: Appearance: grossly normal and well ke
[2020-07-18] MEDS: MIDAZOLAM 100MG/NS 100ML(*CRX) 100 MG/100 ML BAG 6 MG IV CONT (12:28)
--- NOTE | 2020-07-18 13:34 | PM.IMPN ---
Progress Note: A&P Assessment and Plan (1) ARDS (adult respiratory distress syndrome): Code(s): J80 - Acute respiratory distress syndrome Status: Acute (2) Acute respiratory failure with hypoxemia: Code(s): J96.01 - Acute respiratory failure with hypoxia Status: Acute (3) Pneumonia due to COVID-19 virus: Code(s): U07.1 - COVID-19; J12.82 - Pneumonia due to coronavirus disease 2019 Status: Acute (4) Bilateral pneumonia: Code(s): J18.9 - Pneumonia, unspecified organism Status: Acute (5) MARILUZ (obstructive sleep apnea): Code(s): G47.33 - Obstructive sleep apnea (adult) (pediatric) Status: Acute (6) DVT prophylaxis: Code(s): Z29.9 - Encounter for prophylactic measures, unspecified Status: Acute Additional Plan 07/16/20 COVID PNA with acute hypoxemic respiratory failure Continue supplemental oxygen; currently receiving 2 L 95% oxygen saturation on monitor Remdesivir plasma dexamethasone albuterol inhaler Vit C/D Zn++ encouraged to self prone VTEP LMWH 07/17/20 pt w acute worsening of resp status cont tx for COVID defer change in medical regimen to critical care transfer to ICU advance O2 to high flow w NRB c/s Dr Riojas cont supportive care 07/18/20 Patient developed ARDS overnight and was intubated He continues treatment for Coronavirus Defer ongoing critical care management of life support to cipher expert The case reviewed with RN Subjective Date/time seen: 07/18/20 13:34 Patient seen in ICU intubated with paralytic for comfort. Unfortunately, patient entered into ARDS last night around 8:00 p.m. and required intubation. Exam Narrative: Exam Narrative: GEN: NAD, intubated sedated HEENT: NCAT, ETT present Neck: no JVD Ext: no cyanosis, no clubbing, no edema Neuro: Unable to be evaluated Vital signs reviewed Objective Data Vital Signs Vital Signs: Vital Signs - 24 hr 07/17/20 14:00 07/17/20 16:00 07/17/20 17:26 Temperature 97.8 F Pulse Rate 76 92 98 Respiratory Rate 24 H 34 H Blood Pressure 135/86 140/87 Pulse Oximetry 95 97 07/17/20 18:00 07/17/20 19:40 07/17/20 19:48 Temperature 98.5 F Pulse Rate 85 80 Respiratory Rate 30 H 18 Blood Pressure 127/68 Pulse Oximetry 95 91 93 07/17/20 20:00 07/17/20 20:01 07/17/20 20:06 Temperature Pulse Rate 108 H 104 H Respiratory Rate 32 H Blood Pressure 187/107 H Pulse Oximetry 57 L 87 L 07/17/20 20:30 07/17/20 20:40 07/17/20 21:00 Temperature 99.4 F 99.7 F H Pulse Rate 100 101 H 87 Respiratory Rate 25 H 37 H 26 H Blood Pressure 166/90 H 175/108 H Pulse Oximetry 92 83 L 07/17/20 21:15 07/17/20 21:30 07/17/20 21:35 Temperature 99.7 F H Pulse Rate 77 98 Respiratory Rate 24 H 24 H Blood Pressure 142/62 H 157/139 H Pulse Oximetry 92 96 07/17/20 21:45 07/17/20 21:48 07/17/20 21:54 Temperature Pulse Rate 91 98 90 Respiratory Rate 24 H 24 H Blood Pressure 175/88 H Pulse Oximetry 90 90 07/17/20 22:00 07/17/20 23:00 07/17/20 23:50 Temperature 99.9 F H Pulse Rate 90 82 72 Respiratory Rate 24 H 24 H 24 H Blood Pressure 178/84 H 151/69 H Pulse Oximetry 91 98 07/18/20 00:00 07/18/20 02:00 07/18/20 03:19 Temperature 99.8 F H 100.1 F H Pulse Rate 74 69 75 Respiratory Rate 24 H 24 H 25 H Blood Pressure 146/69 H 146/65 H Pulse Oximetry 95 93 93 07/18/20 03:54 07/18/20 04:00 07/18/20 05:55 Temperature 100.4 F H Pulse Rate 74 75 86 Respiratory Rate 24 H Blood Pressure 125/70 Pulse Oximetry 92 93 93 07/18/20 06:00 07/18/20 06:17 07/18/20 08:00 Temperature 100.1 F H 100.5 F H Pulse Rate 79 77 78 Respiratory Rate 26 H 24 H 24 H Blood Pressure 121/67 122/66 140/73 Pulse Oximetry 95 96 07/18/20 08:03 07/18/20 08:46 07/18/20 09:00 Temperature Pulse Rate 79 78 82 Respiratory Rate 26 H 25 H 26 H Blood Pressure 140/73 Pulse Oximetry 93 93 07/18/20 09:50 07/18/20 10:00 07/18/20
[2020-07-18] MEDS: CISATRACURIUM BESYLATE 200 MG in DEXTROSE 5% 80 ML 17.02 ML IV CONT (14:43)
[2020-07-18 15:37] LABS: Alveolar/Arterial O2 Gradient 606.1 mmHg; Base Excess ABG 1.7 mEq/l (+/-2.0); Device VENTILATOR; Fractional Inspired Oxygen 100 %; HCO3 ABG 27.6 mEq/l (22.0-26.0); Modified Allen's Test Pass; Oxygen Content ABG 18.5 %vol (16.0-22.0); Oxygen Saturation ABG 89.8 % (95.0-100.0); Oxyhemoglobin 88.3 % THb (90.0-100.0); PO2 ABG 58.9 mmHg (80.0-100.0); PO2 FiO2 Ratio Arterial Blood 0.59 %; Site Drawn LEFT RADIAL; Total Hemoglobin 14.9 g/dL (12.0-18.0); pH ABG 7.378 (7.350-7.450)
[2020-07-18 15:38] LABS: Arterial Blood Gas PEEP 12 cmH2O; Arterial Blood Gas Tidal Volume 420 ml; Arterial Blood Gas Vent Mode CMV; Arterial Blood Gas Ventilator rate 26 /MIN
[2020-07-18] MEDS: PROPOFOL IV EMULSION 100 ML 17.02 MG IV CONT (18:05)
[2020-07-18] MEDS: CISATRACURIUM BESYLATE 200 MG in DEXTROSE 5% 80 ML 25.51 ML IV CONT (18:05)
[2020-07-18 18:14] LABS: Glucose Point of Care 194 (65-105)
[2020-07-18 18:14] LABS: Glucose Point of Care 202 (65-105)
[2020-07-18] MEDS: ALBUTEROL SULFATE NEB 2.5 MG/0.5 ML INH INHALATION (20:06)
[2020-07-18] MEDS: BUDESONIDE RESPULE NEB 0.5 MG/2 ML AMP 2 MG INHALATION (20:06)
[2020-07-18] MEDS: CISATRACURIUM BESYLATE 200 MG in DEXTROSE 5% 80 ML 23.38 ML IV CONT (21:40)
[2020-07-18] MEDS: REMDESIVIR 100 MG/NS 250 ML 100 MG/250 ML BAG 250 MG IVPB (21:41)
[2020-07-18] MEDS: FENTANYL 2,500MCG/NS250ML(*CRX 2,500 MCG/250 ML BAG 12.5 MCG IV CONT (21:41)
--- NOTE | 2020-07-18 21:53 | PC.NURSE ---
Spoke with aroldo Moore and brother Les in hospital lobby. Family updated to patient care. Family would like to pursue transfer to [facility] or another Hospital. Explained Dr Mane would be updated and suggested that she also call to speak to him tomorrow. Explained there have been BMI limits for [facility], but we can certainly try. Family tearful and thankful for care. Given number for ICU.
[2020-07-19] VITALS (39 sets, daily range): BP systolic 105–131; BP diastolic 60–73; PULSE 61–90; RESP 26–28; TEMP 36.4–37.9; O2SAT 91–100
[2020-07-19] MEDS: PROPOFOL IV EMULSION 100 ML 21.27 MG IV CONT ×6 (00:10→22:44)
[2020-07-19 00:22] LABS: Glucose Point of Care 149 (65-105)
[2020-07-19] MEDS: ALBUTEROL SULFATE NEB 2.5 MG/0.5 ML INH INHALATION ×4 (01:57→20:15)
[2020-07-19] MEDS: CISATRACURIUM BESYLATE 200 MG in DEXTROSE 5% 80 ML 25.51 ML IV CONT (02:44)
[2020-07-19 04:18] LABS: Fractional Inspired Oxygen 100 %; HCO3 ABG 30.2 mEq/l (22.0-26.0); Oxygen Content ABG 21.7 %vol (16.0-22.0); Oxygen Saturation ABG 96.7 % (95.0-100.0); Oxyhemoglobin 95.6 % THb (90.0-100.0); PCO2 ABG 50.7 mmHg (35.0-45.0); PO2 ABG 89.3 mmHg (80.0-100.0); PO2 FiO2 Ratio Arterial Blood 0.89 %; Total Hemoglobin 16.1 g/dL (12.0-18.0); pH ABG 7.393 (7.350-7.450)
[2020-07-19 04:19] LABS: Device VENTILATOR; Modified Allen's Test Pass; Site Drawn RIGHT RADIAL
[2020-07-19 04:20] LABS: Arterial Blood Gas PEEP 12 cmH2O; Arterial Blood Gas Tidal Volume 420 ml; Arterial Blood Gas Vent Mode CMV; Arterial Blood Gas Ventilator rate 26 /MIN
[2020-07-19 05:09] LABS: Hematocrit 38.3 % (42.0-52.0); Hemoglobin 13.3 g/dL (14.0-18.0); Mean Corpuscular HGB Conc 34.7 g/dl (32-36); Mean Corpuscular Hemoglobin 30.4 pg (26-34); Mean Corpuscular Volume 87.6 fl (80-100); Mean Platelet Volume 10.9 fl (7.4-10.4); Platelet Count Result 195 k/mm3 (150-375); Red Blood Count 4.37 M/mm3 (4.6-6.20); White Blood Count 8.7 K/mm3 (4.5-10.0)
[2020-07-19 05:23] LABS: Prothrombin Time 14.1 Seconds (11.1-14.7)
[2020-07-19 05:38] LABS: Alanine Aminotransferase 55 U/L (4-50); Albumin Level 3.4 g/dL (3.5-5.1); Alkaline Phosphatase 74 U/L (38-126); Anion Gap 1 mmol/L (8-16); Aspartate Amino Transferase 74 U/L (17-59); Bilirubin,Total 0.5 mg/dL (0.2-1.3); Blood Urea Nitrogen 21 mg/dL (9-20); Calcium 7.5 mg/dL (8.4-10.2); Carbon Dioxide 35 mmol/L (22-30); Chloride 95 mmol/L (98-107); Estimated CRCL calculation 168 ml/min; Estimated Glomerular Filt Rate > 60; Glucose 154 mg/dL (75-110); Magnesium 3.1 mg/dL (1.6-2.3); Phosphorus 3.8 mg/dL (2.5-4.5); Potassium 4.6 mmol/L (3.4-5.0); Sodium 131 mmol/L (137-145)
[2020-07-19] MEDS: MIDAZOLAM 100MG/NS 100ML(*CRX) 100 MG/100 ML BAG 6 MG IV CONT ×2 (05:59→20:35)
[2020-07-19 06:10] LABS: Lactate Dehydrogenase 2374 U/L (313-618)
[2020-07-19] MEDS: CENTRAL LINE FLUSH 10 ML IV PUSH ×4 (06:29→22:45)
[2020-07-19] MEDS: CISATRACURIUM BESYLATE 200 MG in DEXTROSE 5% 80 ML 21.26 ML IV CONT ×4 (06:49→20:20)
[2020-07-19] MEDS: BUDESONIDE RESPULE NEB 0.5 MG/2 ML AMP 2 MG INHALATION ×4 (07:48→20:15)
[2020-07-19] MEDS: ENOXAPARIN 40 MG/0.4 ML SYRINGE SUB-Q ×2 (08:07→20:24)
[2020-07-19] MEDS: CALCIUM GLUC 1,000 MG/NS 50 ML 1,000 MG/50 ML BAG 100 MG IVPB (08:07)
[2020-07-19] MEDS: ZINC SULFATE 220 MG CAPSULE PO ×2 (08:08→16:25)
[2020-07-19] MEDS: CHOLECALCIFEROL 1,000 UNITS TABLET 1000 UNITS PO (08:08)
[2020-07-19] MEDS: DEXAMETHASONE SOD PHOS INJ 4 MG/ML VIAL 6 MG IV PUSH (08:08)
[2020-07-19] MEDS: ASCORBIC ACID 500 MG TABLET 1000 MG PO ×2 (08:08→16:25)
--- NOTE | 2020-07-19 11:55 | WPDINTPN ---
Progress Note: A&P Assessment and Plan (1) Pneumonia due to COVID-19 virus: Code(s): U07.1 - COVID-19; J12.82 - Pneumonia due to coronavirus disease 2019 Status: Acute Assessment and Plan: Continue dexamethasone 6 mg daily for a total of 10 days continue remdesivir 100 mg daily for a total of 10 days No evidence that convalescent plasma is effective. (2) MARILUZ (obstructive sleep apnea): Code(s): G47.33 - Obstructive sleep apnea (adult) (pediatric) Status: Acute (3) Acute respiratory failure with hypoxemia: Code(s): J96.01 - Acute respiratory failure with hypoxia Status: Acute (4) ARDS (adult respiratory distress syndrome): Code(s): J80 - Acute respiratory distress syndrome Status: Acute Assessment and Plan: His PaO2/ FiO2 is 61 which carries a mortality of approximately 45% with ARDS and likely more in the setting of COVID-19 pneumonia. His prognosis for survival is very poor continue current vent settings: 420/15/RR 26/100% and wean for goal O2 sats of 92-96%. Along with 6 mL/kg of tidal volume his plateau pressures should be below 30 cm of water pressure but unfortunately his current ventilator machine does not have the capability of measuring that period Additional Plan Code status: Full code. I spoke to his Teresa by phone today and answered all her questions. I did explain to her that he has a very poor prognosis given the severity of his ARDS from COVID-19 pneumonia. Critical care time spent: 32 minutes This dictation may have been done utilizing a voice recognition system. Attempts have been made to correct errors. However, there may be uncorrected grammatical, spelling, and recognition errors present. Due to a high probability of clinically significant, life threatening deterioration, the patient required my highest level of preparedness to intervene emergently and I personally spent this critical care time directly and personally managing the patient. This critical care time included obtaining a history; examining the patient; pulse oximetry; ordering and review of studies; arranging urgent treatment with development of a management plan; evaluation of patient's response to treatment; frequent reassessment; and discussions with other providers. It was exclusive of separately billable procedures and treating other patients and teaching time. Please see Assessment and Plan section and the rest of the note for further information on patient assessment and treatment Subjective Date/time seen: 07/19/20 11:55 Interval history: He has been stable overnight on his current vent settings. He has tolerated prone positioning sedation and paralytics as currently prescribed. There has been a slight improvement in oxygenation. He is at goal tidal volume of 420 mL. Review of Systems Review of Systems: All systems reviewed & are unremarkable except as noted in HPI and below Exam Narrative: Exam Narrative: intubated, sedated, paralyzed and in prone positioning Const: General: well developed Nutritional Appearance: obese Limitations: no limitations HENMT: Head: normocephalic and atraumatic Eyes: General: appearance normal, both eyes and all related structures Neck: Neck: trachea midline and supple Resp: Auscultation: wheezes and diminished lung sounds Cardio: Jugular venous distension: no JVD Rate: regular rate Rhythm: regular rhythm Heart sounds: S1 normal heart sound present and S2 normal heart sound present Skin: General skin exam: no rashes or lesions noted Neuro: General: oriented to person, oriented to place, oriented to time and patient oriented x3 Cognition (Neuro): normal cognition Speech: normal speech Extrem: General: no clubbing, cyanosis or edema Psych: Appearance: grossly normal and well kempt Mental Status: mental status grossly normal Objective Data Vital Signs Vital Signs: Vital Signs - 24 hr 07/18/20 12:00 0
[2020-07-19] MEDS: FENTANYL 2,500MCG/NS250ML(*CRX 2,500 MCG/250 ML BAG 15 MCG IV CONT (13:55)
--- NOTE | 2020-07-19 16:11 | PM.IMPN ---
Progress Note: A&P Assessment and Plan (1) ARDS (adult respiratory distress syndrome): Code(s): J80 - Acute respiratory distress syndrome Status: Acute (2) Acute respiratory failure with hypoxemia: Code(s): J96.01 - Acute respiratory failure with hypoxia Status: Acute (3) Pneumonia due to COVID-19 virus: Code(s): U07.1 - COVID-19; J12.82 - Pneumonia due to coronavirus disease 2018 Status: Acute (4) Bilateral pneumonia: Code(s): J18.9 - Pneumonia, unspecified organism Status: Acute (5) MARILUZ (obstructive sleep apnea): Code(s): G47.33 - Obstructive sleep apnea (adult) (pediatric) Status: Acute (6) DVT prophylaxis: Code(s): Z29.9 - Encounter for prophylactic measures, unspecified Status: Acute Additional Plan 07/16/20 COVID PNA with acute hypoxemic respiratory failure Continue supplemental oxygen; currently receiving 2 L 95% oxygen saturation on monitor Remdesivir plasma dexamethasone albuterol inhaler Vit C/D Zn++ encouraged to self prone VTEP LMWH 07/17/20 pt w acute worsening of resp status cont tx for COVID defer change in medical regimen to critical care transfer to ICU advance O2 to high flow w NRB c/s Dr Riojas cont supportive care 07/18/20 Patient developed ARDS overnight and was intubated He continues treatment for Coronavirus Defer ongoing critical care management of life support to vp research The case reviewed with RN 07/19/20 Patient remains intubated Continue treatment for Coronavirus updated on current clinical status, poor prognosis, will continue to treat, hopefully will make a turn for the better Defer ongoing critical care management of life support and tenderness Subjective Date/time seen: 07/19/20 16:11 Spoke with family and staff patient and updated her course. She is aware that Miller has a poor prognosis and I advised her that over the next week she will continue to receive updates. Critical care physician will advise her if he will be able to be extubated or not. Currently he is not clinically well enough to be extubated at this time. I advise her hope is important and that we are doing all we can for him. Exam Narrative: Exam Narrative: GEN: NAD, intubated and sedated HEENT: NCAT, ETT Neck: no JVD Lungs: symmetric rise aerating well w current vent settings Abd: soft, NT, ND, bowel sounds normoactive Ext: no cyanosis, no clubbing Objective Data Vital Signs Vital Signs: Vital Signs - 24 hr 07/18/20 17:17 07/18/20 18:00 07/18/20 18:05 Temperature Pulse Rate 82 76 76 Respiratory Rate 26 H 26 H Blood Pressure 118/68 Pulse Oximetry 91 95 07/18/20 18:06 07/18/20 20:00 07/18/20 20:07 Temperature 98.8 F Pulse Rate 75 78 75 Respiratory Rate 26 H 26 H 26 H Blood Pressure 119/70 Pulse Oximetry 96 07/18/20 20:20 07/18/20 20:27 07/18/20 21:40 Temperature Pulse Rate 77 76 77 Respiratory Rate 26 H 26 H Blood Pressure Pulse Oximetry 95 07/18/20 21:41 07/18/20 22:00 07/18/20 23:00 Temperature 98.3 F Pulse Rate 77 78 72 Respiratory Rate 26 H 26 H Blood Pressure 132/73 Pulse Oximetry 90 92 07/19/20 00:00 07/19/20 00:10 07/19/20 01:58 Temperature 98.5 F Pulse Rate 80 84 75 Respiratory Rate 27 H 28 H 26 H Blood Pressure 129/70 Pulse Oximetry 91 07/19/20 02:00 07/19/20 02:18 07/19/20 04:00 Temperature 98.1 F Pulse Rate 74 72 61 Respiratory Rate 26 H 26 H 26 H Blood Pressure 123/68 Pulse Oximetry 94 95 07/19/20 04:02 07/19/20 04:38 07/19/20 05:00 Temperature 97.7 F Pulse Rate 61 63 62 Respiratory Rate 26 H 26 H 26 H Blood Pressure 121/73 118/69 Pulse Oximetry 97 07/19/20 05:59 07/19/20 06:00 07/19/20 06:02 Temperature 98.0 F Pulse Rate 63 63 63 Respiratory Rate 27 H 27 H 27 H Blood Pressure 108/62 Pulse Oximetry 98 07/19/20 06:11 07/19/20 06:49 07/19/20 07:45 Temperature Pulse Rate 63 62 65 Respirato
[2020-07-19 18:14] LABS: Glucose Point of Care 176 (65-105)
[2020-07-19 18:14] LABS: Glucose Point of Care 189 (65-105)
[2020-07-19] MEDS: REMDESIVIR 100 MG/NS 250 ML 100 MG/250 ML BAG 250 MG IVPB (20:36)
[2020-07-20] VITALS (24 sets, daily range): BP systolic 130–151; BP diastolic 64–74; PULSE 76–92; RESP 26; TEMP 36.8–37.9; O2SAT 93–100; BMI 42.2
--- NOTE | 2020-07-20 | ECHO_ITS ---
Patient Info Name: Bennie Castillo Age: 40 years : 1980 Gender: Male Ht: 69 in Wt: 312 lbs BSA: 2.70 m2 HR: 71 bpm BP: 147 / 72 mmHg Heart Rhythm: Sinus Rhythm Technical Quality: Good Exam Date: 07/20/2020 11:30 AM Exam Location: [facility] Patient Status: Inpatient Admit Date: 07/16/2020 Staff Ordering Physician: Enedelia Solis MD Nurse Transition: Eleno Bolivar, FARZANA, RT Attending Provider: Vasu Cummings MD Referring Physician: Irma ANDRADE; Exam Type: CA echo doppler color flow Study Info Indications I51.7 - Cardiomegaly Complete two-dimensional, color flow and Doppler transthoracic echocardiogram is performed. Summary 1. Complete two-dimensional, color flow and Doppler transthoracic echocardiogram is performed. 2. Technically difficult study with limited views. Regional wall motion assessment limited due to poor endomyocardial border definition. 3. Left ventricular systolic function is normal, estimated at 65-70%. 4. There is mildly increased left ventricular wall thickness. 5. Left atrial chamber dimension is mildly enlarged. 6. Right atrial chamber dimension is mildly enlarged. 7. Unable to estimate PA systolic pressure due to poor spectral resolution of tricuspid regurgitant jet velocity. 8. There is trace tricuspid valve regurgitation. 9. There is no aortic valve stenosis. Left Ventricle Left ventricular chamber dimension is normal. Left ventricular systolic function is normal, estimated at 65-70%. There is mildly increased left ventricular wall thickness. The left ventricular diastolic function is normal. Technically difficult study with limited views. Regional wall motion assessment limited due to poor endomyocardial border definition. Right Ventricle Right ventricular chamber dimension is normal. Right ventricular systolic function is normal. Left Atria Left atrial chamber dimension is mildly enlarged. Right Atria Right atrial chamber dimension is mildly enlarged. Aortic Valve The aortic valve is not well visualized. There is no aortic valve stenosis. There is no aortic valve regurgitation. Pulmonic Valve The pulmonic valve is not well visualized. There is trace pulmonic regurgitation. Mitral Valve The mitral valve has normal leaflets. There is no mitral valve regurgitation. Tricuspid Valve The tricuspid valve leaflets are normal. Unable to estimate PA systolic pressure due to poor spectral resolution of tricuspid regurgitant jet velocity. There is trace tricuspid valve regurgitation. Pericardium/Pleural The pericardium appears normal. There is trivial pericardial effusion. Aorta The aortic root size at the sinus of Valsalva is normal. Left Ventricular Outflow Tract Name Value Normal LVOT 2D LVOT Diameter 2.1 cm LVOT Doppler LVOT Peak Velocity 99 cm/s LVOT Peak Gradient 4 mmHg LVOT Mean Gradient 2 mmHg LVOT VTI 17 cm LVOT VTI/AV VTI Ratio 0.7 LVOT Stroke Volume
[2020-07-20 00:35] LABS: Glucose Point of Care 150 (65-105)
[2020-07-20] MEDS: ALBUTEROL SULFATE NEB 2.5 MG/0.5 ML INH INHALATION ×3 (01:28→13:37)
[2020-07-20] MEDS: CISATRACURIUM BESYLATE 200 MG in DEXTROSE 5% 80 ML 17 ML IV CONT (01:44)
[2020-07-20] MEDS: PROPOFOL IV EMULSION 100 ML 21.27 MG IV CONT ×3 (03:10→12:05)
[2020-07-20 04:20] LABS: Alveolar/Arterial O2 Gradient 292.2 mmHg; Base Excess ABG 2.6 mEq/l (+/-2.0); Device VENTILATOR; Fractional Inspired Oxygen 60 %; HCO3 ABG 26.6 mEq/l (22.0-26.0); Modified Allen's Test Pass; Oxygen Content ABG 18.6 %vol (16.0-22.0); Oxygen Saturation ABG 97.4 % (95.0-100.0); Oxyhemoglobin 96.1 % THb (90.0-100.0); PO2 ABG 92.7 mmHg (80.0-100.0); PO2 FiO2 Ratio Arterial Blood 1.54 %; Site Drawn LEFT RADIAL; Total Hemoglobin 13.7 g/dL (12.0-18.0); pH ABG 7.452 (7.350-7.450)
[2020-07-20 04:21] LABS: Arterial Blood Gas PEEP 15 cmH2O; Arterial Blood Gas Tidal Volume 420 ml; Arterial Blood Gas Vent Mode CMV; Arterial Blood Gas Ventilator rate 26 /MIN
[2020-07-20 05:59] LABS: Hematocrit 40.4 % (42.0-52.0); Hemoglobin 13.5 g/dL (14.0-18.0); Mean Corpuscular HGB Conc 33.4 g/dl (32-36); Mean Corpuscular Hemoglobin 30.1 pg (26-34); Mean Corpuscular Volume 90.2 fl (80-100); Mean Platelet Volume 10.9 fl (7.4-10.4); Platelet Count Result 224 k/mm3 (150-375); Red Blood Count 4.48 M/mm3 (4.6-6.20); Red Cell Distribution Width 13.3 % (11.5-14.5); White Blood Count 9.3 K/mm3 (4.5-10.0)
[2020-07-20 06:09] LABS: Prothrombin Time 13.5 Seconds (11.1-14.7)
[2020-07-20 06:13] LABS: Alanine Aminotransferase 48 U/L (4-50); Albumin Level 3.3 g/dL (3.5-5.1); Alkaline Phosphatase 77 U/L (38-126); Anion Gap 3 mmol/L (8-16); Aspartate Amino Transferase 59 U/L (17-59); Bilirubin,Total 0.8 mg/dL (0.2-1.3); Blood Urea Nitrogen 23 mg/dL (9-20); Calcium 7.5 mg/dL (8.4-10.2); Carbon Dioxide 34 mmol/L (22-30); Chloride 95 mmol/L (98-107); Estimated CRCL calculation 145 ml/min; Estimated Glomerular Filt Rate > 60; Glucose 165 mg/dL (75-110); Lactate Dehydrogenase 1796 U/L (313-618); Magnesium 2.9 mg/dL (1.6-2.3); Phosphorus 3.6 mg/dL (2.5-4.5); Potassium 4.6 mmol/L (3.4-5.0); Sodium 132 mmol/L (137-145)
[2020-07-20] MEDS: CENTRAL LINE FLUSH 10 ML IV PUSH ×2 (06:23→13:26)
[2020-07-20] MEDS: FENTANYL 2,500MCG/NS250ML(*CRX 2,500 MCG/250 ML BAG 15 MCG IV CONT (06:57)
--- NOTE | 2020-07-20 07:45 | PC.NURSE ---
Unproned without incident.
[2020-07-20] MEDS: BUDESONIDE RESPULE NEB 0.5 MG/2 ML AMP 2 MG INHALATION (07:57)
[2020-07-20] MEDS: CHOLECALCIFEROL 1,000 UNITS TABLET 1000 UNITS PO (08:15)
[2020-07-20] MEDS: ZINC SULFATE 220 MG CAPSULE PO (08:15)
[2020-07-20] MEDS: DEXAMETHASONE SOD PHOS INJ 4 MG/ML VIAL 6 MG IV PUSH (08:15)
[2020-07-20] MEDS: ENOXAPARIN 40 MG/0.4 ML SYRINGE SUB-Q (08:15)
[2020-07-20] MEDS: ASCORBIC ACID 500 MG TABLET 1000 MG PO (08:16)
[2020-07-20 08:31] LABS: D Dimer 10.66 ug/mL (<0.48)
[2020-07-20] MEDS: CISATRACURIUM BESYLATE 200 MG in DEXTROSE 5% 80 ML 14.88 ML IV CONT (09:54)
--- NOTE | 2020-07-20 10:21 | PC.NURSE ---
Updated Teresa kendrick with plan of care.
--- NOTE | 2020-07-20 11:19 | WPDINTPN ---
Progress Note: A&P Assessment and Plan (1) Pneumonia due to COVID-19 virus: Code(s): U07.1 - COVID-19; J12.82 - Pneumonia due to coronavirus disease 2019 Status: Acute Assessment and Plan: Continue dexamethasone 6 mg daily for a total of 10 days continue remdesivir 100 mg daily for a total of 10 days No evidence that convalescent plasma is effective. (2) MARILUZ (obstructive sleep apnea): Code(s): G47.33 - Obstructive sleep apnea (adult) (pediatric) Status: Acute Assessment and Plan: Currently mechanically ventilated (3) ARDS (adult respiratory distress syndrome): Code(s): J80 - Acute respiratory distress syndrome Status: Acute Assessment and Plan: His PaO2/ FiO2 is 153 this morning On CMV mode of ventilation, peep of 15 and 60% FiO2, will wean PEEP to 14 and evaluate -patient is being prone for 16 hours daily and tolerating -continue 6 mL/kilogram tidal volumes, unable to obtain plateau pressures -continue pulmicort -continue bronchodilators -patient on fentanyl, Versed and propofol for sedation -Nimbex for chemical paralysis (4) DVT prophylaxis: Code(s): Z29.9 - Encounter for prophylactic measures, unspecified Status: Acute Assessment and Plan: Lovenox (5) Dietary counseling and surveillance: Code(s): Z71.3 - Dietary counseling and surveillance Status: Acute Assessment and Plan: Will start trickle tube feeds Additional Plan Discussed with Teresa and updated her with patient's condition and plan of care. I did tell her that he he likely will be going to [facility] Code status: Full code. Critical care time spent: 37 minutes This dictation may have been done utilizing a voice recognition system. Attempts have been made to correct errors. However, there may be uncorrected grammatical, spelling, and recognition errors present. Due to a high probability of clinically significant, life threatening deterioration, the patient required my highest level of preparedness to intervene emergently and I personally spent this critical care time directly and personally managing the patient. This critical care time included obtaining a history; examining the patient; pulse oximetry; ordering and review of studies; arranging urgent treatment with development of a management plan; evaluation of patient's response to treatment; frequent reassessment; and discussions with other providers. It was exclusive of separately billable procedures and treating other patients and teaching time. Please see Assessment and Plan section and the rest of the note for further information on patient assessment and treatment Subjective Date/time seen: 07/20/20 11:19 Interval history: Reason for consult: Acute respiratory failure secondary to COVID-19 pneumonia, intubated on 07/17/2020 07/20/2020: Patient seen and examined the ICU, on CMV mode of ventilation peep of 15, FiO2 of 60%. Patient is on fentanyl, propofol and midazolam and Nimbex infusion. Patient did tolerate prone positioning and was placed in supine position this morning. Patient's oxygenation continues to improve gradually. Urine output has been adequate with a T-max of 100.3?, hemodynamically stable. D-dimer significantly increased and are elevated Review of Systems Review of Systems: ROS unobtainable: Yes unobtainable due to endotracheal tube, unobtainable due to medical condition and unobtainable due to mental status Exam Const: General: comfortable and no acute distress HENMT: Other: ETT in place Eyes: Sclera: sclerae normal Pupils: Equal, round and reactive pupils present Neck: Neck: supple Resp: Effort & Inspection: normal respiratory effort and labored Auscultation: rhonchi and diminished lung sounds Other: Coarse breath sounds Cardio: Rate: regular rate Rhythm: regular rhythm GI: Inspection: non-distended GI Palp: Yes Soft to palpation and No Ten
--- NOTE | 2020-07-20 11:20 | PCDIET ---
Nutrition Follow-Up Complete: Nutrition Diagnosis: Inadequate oral intake related to decreased appetite as evidenced by intake records. Nutrition Goal: Patient to consume 50% of meals/supplements or greater. Goal no longer applicable. New goal: Patient to meet estimated nutritional needs. Patient now intubated with MD order to start Vital 1.2 at 10mL/hr and advance toward 20mL/hr. Will recommend advancing toward ultimate goal rate over the next few days. Last recorded weight is 129.7 kg which is decreased from last review. -I/O. Bowel Motility: Last documented BM on 07/16/20 x 2. Labs Reviewed: Hgb (13.5), Hct (40.4), Glu (165), BUN (23), Na (132), Alb (3.3), Nathan Ca (8.06), Mg (2.9) Meds Noted: Albuterol, Nimbex, Remdesivir, Vitamin C, Decadron, Pulmicort, Fentanyl, Versed, Vitamin D, Zinc Sulfate Additional Notes: Propofol infusing at 21.27mL/hr which provides 561kcal per day. No documented skin breakdown. Will continue to monitor with same goal. Nutrition Monitoring and Evaluation: Follow up every Monday/Monday.
[2020-07-20] MEDS: PANTOPRAZOLE SODIUM IV 40 MG VIAL IV PUSH (12:00)
[2020-07-20 12:43] LABS: Glucose Point of Care 206 (65-105)
--- NOTE | 2020-07-20 12:48 | PC.NURSE ---
Report called to LENNOX Brown at [facility]
--- NOTE | 2020-07-20 13:08 | PM.TDS ---
Transfer Discharge Sum: Prov Provider Date of admission: 07/16/20 02:33 Primary care physician: PRINTING MACHINE MECHANIC PHYSICIAN Admitting clinician: Vasu Cummings MD Consults: 07/17/20 Care Coordination Consult Routine Comment: wants POA papers Reason for Consult:: Advanced Directives Consult to Physician Routine Comment: Consulting Provider: Enedelia Solis Reason for consultation: hypoxia Has provider been notified: Yes Consult to Physician Routine Comment: [facility] [employer] management professor Provider: Melvin Vega call center agent/MD group to consult: retirement officer Reason for consultation: oxzygen requirement, covid Has provider been notified: Yes 07/19/20 Care Coordination Consult Routine Comment: palliative care consult Reason for Consult:: Other DS: Admitting Diagnosis Admitting Diagnosis Admitting Diagnosis: Chief Complaint: shortness of breath DS: Discharge Diagnosis Discharge Diagnosis (1) ARDS (adult respiratory distress syndrome): Code(s): J80 - Acute respiratory distress syndrome Status: Acute (2) Acute respiratory failure with hypoxemia: Code(s): J96.01 - Acute respiratory failure with hypoxia Status: Deleted Assessment and Plan: 40-year-old male with obesity and obstructive sleep apnea presents to the emergency room on his 4rd visit this week Previous of visits last Monday for headache, last Monday for dehydration and poor p.o. intake, He was diagnosed 08/13/20 w pneumonia w + COVID. He was discharged with antibiotics, albuterol inhaler from the emergency room. he has returned again 07/15/2020Monday with noted shortness of breath after calling 911 and being noted to be hypoxic 86% on room air. Associated symptoms are cough, left flank pain with coughing and sob. He denies loss of taste or smell. Denies diarrhea. 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 He has no known sick contacts. Chief Complaint: shortness of breath (3) Pneumonia due to COVID-19 virus: Code(s): U07.1 - COVID-19; J12.82 - Pneumonia due to coronavirus disease 2019 Status: Acute (4) Bilateral pneumonia: Code(s): J18.9 - Pneumonia, unspecified organism Status: Acute (5) MARILUZ (obstructive sleep apnea): Code(s): G47.33 - Obstructive sleep apnea (adult) (pediatric) Status: Acute (6) DVT prophylaxis: Code(s): Z29.9 - Encounter for prophylactic measures, unspecified Status: Acute Transfer Discharge Sum: Med Medications Active and Home Medications: Home Medications albuterol sulfate 2 puff INHALATION QID PRN #1 g 07/14/20 [Rx Confirmed 07/16/20] famotidine [Pepcid] 20 mg PO BID #14 tablet 07/14/20 [Rx Confirmed 07/16/20] fluticasone furoate [Flonase Sensimist] 2 spray INTRANASAL DAILY #5.9 ml 07/14/20 [Rx Confirmed 07/16/20] ibuprofen [IBU] 600 mg PO Q6H PRN #7 tablet 07/14/20 [Rx Confirmed 07/16/20] azithromycin [Zithromax Z-Velasquez] 250 mg PO DAILY 07/16/20 [History Confirmed 07/16/20] loratadine [Claritin] 10 mg PO DAILY 07/16/20 [History Confirmed 07/16/20] Active Medications Acetaminophen (Acetaminophen 325 Mg Tablet) 650 mg PO Q6H PRN PRN Reason: Headache or pain Last Admin: 07/17/20 12:46 Dose: 650 mg Documented by: Albuterol (Albuterol Sulfate Neb 2.5 Mg/0.5 Ml Inh) 2.5 mg INHALATION Q6HRT [facility] Last Admin: 07/20/20 07:57 Dose: 2.5 mg Documented by: Ascorbic Acid (Ascorbic Acid 500 Mg Tablet) 1,000 mg PO BID [facility] Last Admin: 07/20/20 08:16 Dose: 1,000 mg Documented by: Budesonide (Budesonide Respule Neb 0.5 Mg/2 Ml Amp) 2 mg INHALATION Q12HRT [facility] Last Admin: 07/20/20 07:57 Dose: 2 mg Documented by: Dexamethasone Sodium Phosphate (Dexamethasone Sod Phos Inj 4 Mg/Ml Vial) 6 mg IV PUSH DAILY [facility] Stop: 07/25/20 09:01 Last Admin: 07/20/20 08:15 Dose: 6 mg Documented by: Enoxaparin Sodium (Enoxaparin 40 Mg/0.4 Ml Syringe) 40 mg SUB-Q Q12H [facility] Last Admin: 07/20/20 08:15 Dose:
[2020-07-20] MEDS: MIDAZOLAM 100MG/NS 100ML(*CRX) 100 MG/100 ML BAG 6 MG IV CONT (13:25)
--- NOTE | 2020-07-20 14:17 | PC.NURSE ---
LENNOX Brown and aroldo Moore updated on patient's departure.
--- NOTE | 2020-07-21 11:15 | PC.NURSE ---
aroldo Moore, received personal belongings from RN. 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
== END 2020-07-20 13:10 | disposition short-term general hospital (02) | DRG 208 ==
LOC: ANHED 02:42 → ANHIMU 04:33 → ANHICU 07-20 05:07 → ANHIMU 07-21 16:25
PROVIDERS: Internal Medicine; Internal Medicine Critical Care Medicine; Admitting Provider Family Medicine; Emergency Provider General Practice; Visit Provider Hospitalist
DX: U07.1 COVID-19 (principal); J12.82 Pneumonia due to coronavirus disease 2019; J80 Acute respiratory distress syndrome; Z68.41 Body mass index [BMI] 40.0-44.9, adult; G47.33 Obstructive sleep apnea (adult) (pediatric); E86.0 Dehydration; E66.9 Obesity, unspecified
CPT/HCPCS: 31500; 36415; 36600; 71045; 71275; 80053; 81001; 82375; 82565; 82728; 82805; 82948; 83050; 83605; 83615; 83690; 83735; 84100; 84460; 85025; 85027; 85380; 85610; 85730; 86140; 87040; 87086; 93005; 93306; 94002; 94003; 94640; 96361; 96374; 96375; 99284; 99285; A9270; C1751; C9113; C9803; J0330; J0610; J1100; J1650; J1885; J2250; J2704; J3010; J7030; J8540; Q9967; U0003; U0005